=== PATIENT | female | born 1955 | race Caucasian/White ===

== ENCOUNTER → 2016-04-17 | Outpatient (CLI) | payer MEDICARE, MEDICAID | LOC: RAD 13:30 | PROVIDERS: ATTEND Internal Medicine Critical Care Medicine | DX: J44.9 Chronic obstructive pulmonary disease, unspecified (principal); R06.00 Dyspnea, unspecified; R91.1 Solitary pulmonary nodule; Z80.1 Family history of malignant neoplasm of trachea, bronchus and lung; J45.40 Moderate persistent asthma, uncomplicated; G47.34 Idiopathic sleep related nonobstructive alveolar hypoventilation; R06.83 Snoring; R53.83 Other fatigue; G47.9 Sleep disorder, unspecified; J40 Bronchitis, not specified as acute or chronic; R91.8 Other nonspecific abnormal finding of lung field | CPT/HCPCS: 71250 ==

== ENCOUNTER 2016-04-27 09:33 | Day surgery (SDC) | payer MEDICARE, MEDICAID ==
[~2016-04-27 09:33] MED LIST: PROPOFOL INJ 200 MG/20 ML VIAL IV ONE
[2016-04-27] MEDS ORDERED: ALBUTEROL SULFATE 0.083% NEB 2.5 MG/3 ML AMPUL NEB ONE (10:03)
[2016-04-27 11:22] VITALS: BP 133/65
--- NOTE | 2016-04-27 13:55 | Operative Report ---
Operative Report DATE OF SURGERY: 04/27/16 Operative Report: The risks, benefits and alternatives of the procedure including risks of bleeding, perforation requiring surgery I expended to the patient detail and informed consent is obtained. Patient is placed in a left lateral decubital position about back to the endoscopy suite. Timeout is called. Propofol medications administered. A rectal examination was done which did not reveal any masses, tears or fissures. An Olympus videoscope was inserted into the patient's rectum. The scope was then carefully advanced all the way to the cecum. The cecum was identified by the usual anatomical landmarks including the ileocecal valve as well as the appendiceal office. Photodocumentation was obtained. Prep is good. The scope was then sequentially pulled back creative rest segments of the colon including the ascending colon, hepatic flexure, transverse colon, splenic flexure, descending colon and finally into the rectosigmoid portions of the colon. Flexure maneuver is performed. The risks benefits and alternatives of the procedure explained to the patient in detail and informed consent is obtained that GIF Olympus video scope was inserted into the patient's mouth and hypopharynx the esophagus is identified intubated and insufflated the scope was then advanced through the esophagus stomach and duodenum retroflexion maneuver is done the esophagus stomach and first and second portions of the duodenum examined PREOPERATIVE DIAGNOSIS: Epigastric pain. Rectal bleeding POSTOPERATIVE DIAGNOSIS: 1 Gonzalez's esophagus status post biopsy. 2 hiatal hernia. Gastritis status post biopsy rule out Helicobacter pylori. Diverticulosis. Internal hemorrhoids. Colon polyp which is removed via biopsy forceps OPERATION: Colonoscopy with biopsy. EGD with biopsy SURGEON: RANCHO MULLEN ANESTHESIA: LMAC TISSUE REMOVED OR ALTERED: Esophageal specimens is noted. Gastric specimens is noted. Colon specimens is noted COMPLICATIONS: None. ESTIMATED BLOOD LOSS: none. INTRAOPERATIVE FINDINGS: As described above. PROCEDURE: Patient tolerated the procedure well. No immediate postprocedure complications are noted. Patient is discharged in good condition. Discharge date 04/27/2016. Discharge diet: Regular. Discharge activity: Regular. Patient does have a 2-3 week follow-up to discuss findings. She will need an EGD with ablative therapy. She is instructed to call the office or proceed to the emergency room needed. We'll await on biopsies. Surveillance colonoscopy in 10 years unless there are other problems. She'll be contacted ahead of time if there are any significant findings on the pathology report
== END 2016-04-27 11:17 | disposition home or self-care (01) ==
LOC: END 09:33
PROVIDERS: ATTEND Internal Medicine Gastroenterology
PROC: 0DBF8ZX Excision of Right Large Intestine, Via Natural or Artificial Opening Endoscopic, Diagnostic (ICD-10-PCS; 2016-04-27)
PROC: 0DBP8ZX Excision of Rectum, Via Natural or Artificial Opening Endoscopic, Diagnostic (ICD-10-PCS; 2016-04-27)
PROC: 0DB68ZX Excision of Stomach, Via Natural or Artificial Opening Endoscopic, Diagnostic (ICD-10-PCS; principal; 2016-04-27 12:00)
PROC: 0DB58ZX Excision of Esophagus, Via Natural or Artificial Opening Endoscopic, Diagnostic (ICD-10-PCS; 2016-04-27 12:00)
DX: K29.50 Unspecified chronic gastritis without bleeding (principal); K44.9 Diaphragmatic hernia without obstruction or gangrene; K64.8 Other hemorrhoids; K62.5 Hemorrhage of anus and rectum; K57.30 Diverticulosis of large intestine without perforation or abscess without bleeding; K62.1 Rectal polyp; J44.9 Chronic obstructive pulmonary disease, unspecified; I10 Essential (primary) hypertension; E78.5 Hyperlipidemia, unspecified; M85.80 Other specified disorders of bone density and structure, unspecified site; M19.90 Unspecified osteoarthritis, unspecified site; F17.200 Nicotine dependence, unspecified, uncomplicated; Z88.5 Allergy status to narcotic agent
CPT/HCPCS: 43239; 45380; 88305 ×2; J2704; A9270; 740

== ENCOUNTER 2016-05-13 07:16 | Day surgery (SDC) | payer MEDICARE, MEDICAID ==
--- NOTE | 2016-05-08 12:37 | EKG REPORT ---
SEVERITY:- NORMAL ECG - SINUS RHYTHM : Confirmed by: Aden Ocampo 08-May-2016 12:36:01
[2016-05-08 12:38] LABS: ABSOLUTE BASOPHILS # (AUTO) 0.1 10^3/uL (0.0-0.2); ABSOLUTE EOSINOPHILS # (AUTO) 0.2 10^3/uL (0.0-0.6); ABSOLUTE LYMPHOCYTES (AUTO) 2.5 10^3/uL (0.5-4.7); ABSOLUTE MONOCYTES (AUTO) 0.4 10^3/uL (0.1-1.4); ABSOLUTE NEUT (AUTO) 2.1 10^3/uL (1.7-8.2); BASOPHILS % (AUTO) 1.1 % (0-2); EOSINOPHILS % (AUTO) 3.7 % (0-6); HEMOGLOBIN 11.8 g/dL (12.0-15.5); HGB HCT DIFFERENCE 0.4; LYMPHOCYTES % (AUTO) 47.2 % (13-45); MEAN CORPUSCULAR HEMOGLOBIN 32.7 pg (27.0-33.4); MEAN CORPUSCULAR HGB CONC 33.8 g/dL (32.0-36.0); MEAN CORPUSCULAR VOLUME 97 fl (80-97); MONOCYTES % (AUTO) 8.3 % (3-13); RED BLOOD COUNT 3.62 10^6/uL (3.72-5.28); SEGMENTED NEUTROPHILS % (AUTO) 39.7 % (42-78); WHITE BLOOD COUNT 5.3 10^3/uL (4.0-10.5)
[2016-05-08 13:20] LABS: ANION GAP 13 (5-19); BLOOD UREA NITROGEN 9 mg/dL (7-20); CALCIUM 9.4 mg/dL (8.4-10.2); CARBON DIOXIDE 29 mmol/L (22-30); CHLORIDE 99 mmol/L (98-107); CREATININE RESULT 0.77 mg/dL (0.52-1.25); GLUCOSE 91 mg/dL (75-110); POTASSIUM 4.1 mmol/L (3.6-5.0)
[~2016-05-13 07:16] MED LIST changes: +ACETAMINOPHEN 325 MG TABLET PO PRN; +DEXTROSE 5%-1/2 NORMAL SALINE 1,000 ML IV PRN; +LACTATED RINGERS 1000 ML IV PRN; +LIDOCAINE 0.5% INJ-PF (5 MG/ML) 50 ML SDV SUBCUT PRN; +PROMETHAZINE HCL INJ 25 MG/1 ML VIAL INJ PRN; -PROPOFOL INJ 200 MG/20 ML VIAL IV ONE
[2016-05-13] MEDS ORDERED: MIDAZOLAM 2 MG/2 ML INJ ONE (09:21)
[2016-05-13] MEDS ORDERED: PROPOFOL INJ 200 MG/20 ML VIAL IV ONE (09:21)
[2016-05-13] MEDS ORDERED: KETAMINE HCL INJ 500 MG/10 ML VIAL ONE (09:22)
[2016-05-13] MEDS ORDERED: PROMETHAZINE HCL INJ 25 MG/1 ML VIAL IV PRN ×2 (10:01)
[2016-05-13] MEDS ORDERED: MEPERIDINE HCL/PF INJ 25 MG/1 ML DISP.SYRIN IV PRN (10:01)
[2016-05-13] MEDS ORDERED: DIPHENHYDRAMINE HCL 50 MG/ML VIAL IV PRN (10:01)
--- NOTE | 2016-05-13 10:21 | Operative Report ---
Operative Report DATE OF SURGERY: 05/13/16 Operative Report: The risks benefits and alternatives of the procedure explained to the patient in detail and informed consent is obtained that GIF Olympus video scope was inserted into the patient's mouth and hypopharynx the esophagus is identified intubated and insufflated the scope was then advanced through the esophagus stomach and duodenum retroflexion maneuver is done the esophagus stomach and first and second portions of the duodenum examined PREOPERATIVE DIAGNOSIS: Gonzalez's esophagus POSTOPERATIVE DIAGNOSIS: Gonzalez's esophagus, low-grade dysplasia status post ablation OPERATION: EGD with ablation SURGEON: RANCHO MULLEN ANESTHESIA: LMAC TISSUE REMOVED OR ALTERED: None. COMPLICATIONS: None. ESTIMATED BLOOD LOSS: none. INTRAOPERATIVE FINDINGS: Gonzalez's esophagus status post ablation, hiatal hernia PROCEDURE: Patient tolerated procedure well. No immediate postprocedure complications are noted. Patient is discharged in good condition. Discharge date 05/13/2016. Discharge activity: Regular. Discharge diet: Regular. No cold fluids for the next 24-48 hours. 2-3 week follow-up to discuss findings. 8 weeks surveillance Patient is instructed to call the office or proceed to the emergency room if any further problems or questions
[2016-05-13] MEDS ORDERED: ONDANSETRON HCL INJ/PF 4 MG/2 ML SDV ONE (10:34)
[2016-05-13] MEDS ORDERED: DEXTROSE 5%-1/2 NORMAL SALINE 1,000 ML IV PRN (11:28)
[2016-05-13] MEDS ORDERED: LIDOCAINE 0.5% INJ-PF (5 MG/ML) 50 ML SDV SUBCUT PRN (11:29)
[2016-05-13] MEDS ORDERED: SIMETHICONE 80 MG TAB.CHEW PO PRN (11:44)
[2016-05-13 13:53] VITALS: BP 139/82
[2016-05-13] MEDS ORDERED: LIDOCAINE 2% INJ-PF (20 MG/ML) 10 ML AMPUL ONE (14:34)
== END 2016-05-13 12:30 | disposition home or self-care (01) ==
LOC: OROUT 07:16
PROVIDERS: ATTEND Internal Medicine Gastroenterology
PROC: 0D558ZZ Destruction of Esophagus, Via Natural or Artificial Opening Endoscopic (ICD-10-PCS; principal; 2016-05-13 09:15)
DX: K22.70 Barrett's esophagus without dysplasia (principal); J45.909 Unspecified asthma, uncomplicated; J44.9 Chronic obstructive pulmonary disease, unspecified; F17.210 Nicotine dependence, cigarettes, uncomplicated; I10 Essential (primary) hypertension; E78.5 Hyperlipidemia, unspecified; Z88.5 Allergy status to narcotic agent; Z79.51 Long term (current) use of inhaled steroids
CPT/HCPCS: 43270; 93005; 36415; 85025; 80048; 71020; 93010; J2250; J3490 ×2; A9270; J2405; J2704; 740

== ENCOUNTER 2016-07-06 08:33 | Day surgery (SDC) | payer MEDICARE, MEDICAID ==
[~2016-07-06 08:33] MED LIST changes: -ACETAMINOPHEN 325 MG TABLET PO PRN; -LACTATED RINGERS 1000 ML IV PRN; -LIDOCAINE 0.5% INJ-PF (5 MG/ML) 50 ML SDV SUBCUT PRN; -PROMETHAZINE HCL INJ 25 MG/1 ML VIAL INJ PRN; +PROPOFOL INJ 200 MG/20 ML VIAL IV ONE
[2016-07-06] MEDS ORDERED: PROPOFOL INJ 200 MG/20 ML VIAL IV ONE (08:35)
[2016-07-06 09:53] VITALS: BP 136/86
--- NOTE | 2016-07-06 13:58 | Operative Report ---
Operative Report DATE OF SURGERY: 07/06/16 Operative Report: The risks benefits and alternatives of the procedure explained to the patient in detail and informed consent is obtained that GIF Olympus video scope was inserted into the patient's mouth and hypopharynx the esophagus is identified intubated and insufflated the scope was then advanced through the esophagus stomach and duodenum retroflexion maneuver is done the esophagus stomach and first and second portions of the duodenum examined PREOPERATIVE DIAGNOSIS: Long segment Gonzalez's esophagus POSTOPERATIVE DIAGNOSIS: Same, status post ablation OPERATION: EGD with ablation SURGEON: RANCHO MULLEN ANESTHESIA: Moderate Sedation TISSUE REMOVED OR ALTERED: None. COMPLICATIONS: None. ESTIMATED BLOOD LOSS: none. INTRAOPERATIVE FINDINGS: Gonzalez's status post ablation. Normal gastric antrum. First and second portions of the duodenum normal. PROCEDURE: Patient tolerated procedure well. No immediate postprocedure complications are noted. Patient is discharged in good condition. Discharge date 07/06/2016. Discharge diet: Regular. Discharge activity: Regular. No immediate postprocedure complications are noted. 6-8 weeks follow up for surveillance.
== END 2016-07-06 10:00 | disposition home or self-care (01) ==
LOC: END 08:33
PROVIDERS: ATTEND Internal Medicine Gastroenterology
PROC: 0D558ZZ Destruction of Esophagus, Via Natural or Artificial Opening Endoscopic (ICD-10-PCS; principal; 2016-07-06 08:30)
DX: K22.719 Barrett's esophagus with dysplasia, unspecified (principal); K29.51 Unspecified chronic gastritis with bleeding; J44.9 Chronic obstructive pulmonary disease, unspecified; M19.90 Unspecified osteoarthritis, unspecified site; E78.5 Hyperlipidemia, unspecified; I10 Essential (primary) hypertension; M85.88 Other specified disorders of bone density and structure, other site; F17.210 Nicotine dependence, cigarettes, uncomplicated; Z79.899 Other long term (current) drug therapy; Z79.51 Long term (current) use of inhaled steroids
CPT/HCPCS: 43270; J2704; 740

== ENCOUNTER → 2016-08-07 | Outpatient (CLI) | payer MEDICARE, MEDICAID | LOC: RAD 08:44 | PROVIDERS: ATTEND Internal Medicine Critical Care Medicine | DX: R91.1 Solitary pulmonary nodule (principal) | CPT/HCPCS: 71250 ==

== ENCOUNTER 2016-08-24 07:16 | Day surgery (SDC) | payer MEDICARE, MEDICAID ==
[2016-08-24] MEDS ORDERED: PROPOFOL INJ 200 MG/20 ML VIAL IV ONE (07:26)
[2016-08-24 08:53] VITALS: BP 151/74
--- NOTE | 2016-08-24 13:15 | Operative Report ---
Operative Report DATE OF SURGERY: 08/24/16 Operative Report: The risks, benefits and alternatives of the procedure are explained to the patient in detail and informed consent is obtained the patient is taken to the EU suite and time out is called. Propofol sedation is administered. A GIF videoscope is inserted into the patient's mouth and hypopharynx the esophagus is identified and insufflated, the scope is then gradually advanced downwards thru the esophagus Gonzalez's tissue is identified the stomach and the duodenum are inspected, the scope is brought back out into the stomach cavity and retroflexed the esophagus, stomach and small intestine is examined PREOPERATIVE DIAGNOSIS: Gonzalez's esophagus POSTOPERATIVE DIAGNOSIS: Gonzalez's esphagus , long segment but improved since has had prior ablative procedure OPERATION: EGD with ablation SURGEON: RANCHO MULLEN ANESTHESIA: LMAC TISSUE REMOVED OR ALTERED: none COMPLICATIONS: none ESTIMATED BLOOD LOSS: none INTRAOPERATIVE FINDINGS: as described above PROCEDURE: The patient tolerated the procedure well no post procedure complications are noted patient is discharged in good condition discharge date: 08/24/16 discharge diet: regular discharge activity : regular repeat ablation in 6 weeks follow up as needed patient to call the office or proceed to the ER if there are any other questions or issues.
== END 2016-08-24 08:50 | disposition home or self-care (01) ==
LOC: END 07:16
PROVIDERS: ATTEND Internal Medicine Gastroenterology
PROC: 0D558ZZ Destruction of Esophagus, Via Natural or Artificial Opening Endoscopic (ICD-10-PCS; principal; 2016-08-24 08:00)
DX: K22.70 Barrett's esophagus without dysplasia (principal); J44.9 Chronic obstructive pulmonary disease, unspecified; I10 Essential (primary) hypertension; F17.210 Nicotine dependence, cigarettes, uncomplicated; Z79.899 Other long term (current) drug therapy; Z88.5 Allergy status to narcotic agent; Z87.11 Personal history of peptic ulcer disease
CPT/HCPCS: 43270; J2704; 810

== ENCOUNTER 2016-09-30 07:51 | Day surgery (SDC) | payer MEDICARE, MEDICAID ==
[~2016-09-30 07:51] MED LIST changes: -DEXTROSE 5%-1/2 NORMAL SALINE 1,000 ML IV PRN; +LACTATED RINGERS 1000 ML IV PRN; +LIDOCAINE 0.5% INJ-PF (5 MG/ML) 50 ML SDV SUBCUT PRN; -PROPOFOL INJ 200 MG/20 ML VIAL IV ONE
[2016-09-30] MEDS ORDERED: ALBUTEROL SULFATE 0.083% NEB 2.5 MG/3 ML AMPUL NEB ONE (08:38)
[2016-09-30] MEDS ORDERED: PROPOFOL INJ 200 MG/20 ML VIAL IV ONE (10:24)
[2016-09-30] MEDS ORDERED: DIPHENHYDRAMINE HCL 50 MG/ML VIAL IV PRN (11:11)
[2016-09-30] MEDS ORDERED: FENTANYL CITRATE INJ/PF 100 MCG/2 ML AMPUL IV PRN ×2 (11:11)
[2016-09-30] MEDS ORDERED: PROMETHAZINE HCL INJ 25 MG/1 ML VIAL IV PRN ×2 (11:11)
--- NOTE | 2016-09-30 11:18 | Operative Report ---
Operative Report DATE OF SURGERY: 09/30/16 Operative Report: The risks benefits and alternatives of the procedure explained to the patient in detail and informed consent is obtained. A GIF Olympus video scope was inserted into the patient's mouth and hypopharynx, the esophagus is identified intubated and insufflated,the scope was then advanced through the esophagus stomach and duodenum, retroflexion maneuver is done, the esophagus stomach and first and second portions of the duodenum examined PREOPERATIVE DIAGNOSIS: Gonzalez's esophagus long segment POSTOPERATIVE DIAGNOSIS: Initial upper endoscopy is performed in order to obtain an accurate length of the Gonzalez's esophagus. It is noted that the Gonzalez's stopped at 25 cm and proceeds to about 36 cm patient does have a hiatal hernia. A guidewire was placed. The scope was gradually removed via the exchange method. The balloon catheter was then placed over the wire and positioned at 24 cm. Because of this before centimeter ablation distance, the first ablation was started at 24 cm. Following placement of the balloon catheter repeat upper endoscopy was done to visualize the area. After the first ablation, the balloon catheter was advanced 4 cm. Ablation was then reapplied. Following this the balloon catheter was then advanced another 4 cm and a third ablation performed. All the devices have been removed. Repeat upper endoscopy demonstrates adequate ablation of the lesion from 25-36 cm. Procedure was then completed. OPERATION: EGD with ablation SURGEON: RANCHO MULLEN ANESTHESIA: LMAC TISSUE REMOVED OR ALTERED: None. COMPLICATIONS: None. ESTIMATED BLOOD LOSS: None. INTRAOPERATIVE FINDINGS: As described above. PROCEDURE: Patient tolerated the procedure well. No immediate postprocedure complications are noted. Patient discharged in good condition. Discharge date 09/30/2016. Discharge diet regular but no cold liquids for 48 hours. Discharge activity regular 2-3 week follow-up to discuss findings Surveillance EGD with possible re-ablation for localized islands in about 5-6 months Patient is instructed to call the office or proceed to the emergency room should there be any further problems or questions
[2016-09-30] MEDS ORDERED: ONDANSETRON HCL INJ/PF 4 MG/2 ML SDV ONE ×2 (11:52→13:06)
[2016-09-30] MEDS ORDERED: DEXAMETHASONE SOD PHOSPHATE INJ 4 MG/1 ML VIAL ONE (13:06)
[2016-09-30 13:50] VITALS: BP 150/79
== END 2016-09-30 13:00 | disposition home or self-care (01) ==
LOC: OROUT 07:51
PROVIDERS: ATTEND Internal Medicine Gastroenterology
PROC: 0D558ZZ Destruction of Esophagus, Via Natural or Artificial Opening Endoscopic (ICD-10-PCS; principal; 2016-09-30 10:00)
DX: K22.719 Barrett's esophagus with dysplasia, unspecified (principal); I10 Essential (primary) hypertension; J44.9 Chronic obstructive pulmonary disease, unspecified; F17.210 Nicotine dependence, cigarettes, uncomplicated; K21.9 Gastro-esophageal reflux disease without esophagitis; E78.5 Hyperlipidemia, unspecified; M19.90 Unspecified osteoarthritis, unspecified site; Z79.51 Long term (current) use of inhaled steroids; Z88.5 Allergy status to narcotic agent; Z79.899 Other long term (current) drug therapy
CPT/HCPCS: 43270; C1769; J1100; J2405; J2704; A9270; 740

== ENCOUNTER → 2016-12-01 | Outpatient (CLI) | payer MEDICARE, MEDICAID ==
--- NOTE | 2016-12-04 12:56 | WOMENS IMAGING REPORT ---
EXAM DESCRIPTION: BILAT SCREENING MAMMO W/CAD COMPLETED DATE/TIME: 12/04/2016 12:27 pm REASON FOR STUDY: ROUTINE SCREENING; Z12.31 Z12.31 ENCNTR SCREEN MAMMOGRAM FOR MALIGNANT NEOPLASM O F TATIANA COMPARISON: Annual priors dating back to August 2010. TECHNIQUE: Standard craniocaudal and mediolateral oblique views of each breast recorded using digita l acquisition. LIMITATIONS: None. FINDINGS: Findings present which are benign by mammographic criteria. No suspicious masses, calcifi cations or architectural distortion. Pertinent benign findings: Benign calcifications. Read with the assistance of CAD. .[facility] - R2 Cenova Version 1.3 .[facility] - R2 Cenova Version 1.3 .[facility] - R2 Cenova Version 2.4 .[facility] [place] Cenova Version 2.4 .[facility] - R2 [employer] Version 9.2 Benign mammographic findings may include one or more of the following: Smooth masses, popcorn/rim/co arse calcifications, asymmetries, post-procedure changes, and lesions with long-standing stability. IMPRESSION: BENIGN MAMMOGRAPHIC FINDINGS. BIRADS 2 BREAST DENSITY: c. The breasts are heterogeneously dense, which may obscure small masses. BIRAD: 2 BENIGN FINDING(S) RECOMMENDATION: ROUTINE SCREENING COMMENT: The patient has been notified of the results by letter per SA requirements. Additional no tification policies are in place for contacting patient with suspicious or incomplete findings. Quality ID #[id number]: The [employer] recommends an annual screening mammogram for women aged 40 years or over. This facility utilizes a reminder system to ensure that all patients receive reminder letters, and/or direct phone calls for appointments. This includes reminders for routine scr eening mammograms, diagnostic mammograms, or other Breast Imaging Interventions when appropriate. Th is patient will be placed in the appropriate reminder system. The [employer] (ACR) has developed recommendations for screening MRI of the breast s in certain patient populations, to be used in conjunction with mammography. Breast MRI surveillanc e may be appropriate for women with more than 20% lifetime risk of developing breast cancer as deter mined by genetic testing, significant family history of the disease, or history of mantle radiation f or Hodgkins Disease. ACR Practice Guidelines 2008. TECHNICAL DOCUMENTATION: FINDING NUMBER: (1) ASSESSMENT: (1) JOB ID: [id number] [employer]- All Rights Reserved
== END ==
LOC: WI 09:41 → MERGE 09:41
PROVIDERS: ATTEND Family Medicine
DX: Z12.31 Encounter for screening mammogram for malignant neoplasm of breast (principal)
CPT/HCPCS: 77067; G0202

== ENCOUNTER → 2017-03-09 | Outpatient (CLI) | payer MEDICARE, MEDICAID ==
--- NOTE | 2017-03-09 12:49 | RADIOLOGY REPORT (SQ) ---
EXAM DESCRIPTION: CHEST PA/LAT COMPLETED DATE/TIME: 03/09/2017 12:39 pm REASON FOR STUDY: R05 COUGH PRODUCTIVE OF PURULENT SPUTUM COMPARISON: 05/06/2015 EXAM PARAMETERS: NUMBER OF VIEWS: two views TECHNIQUE: Digital Frontal and Lateral radiographic views of the chest acquired. RADIATION DOSE: NA LIMITATIONS: none FINDINGS: LUNGS AND PLEURA: The lungs are hyperexpanded. There is no infiltrate or effusion. There is no mass. MEDIASTINUM AND HILAR STRUCTURES: No masses or contour abnormalities. HEART AND VASCULAR STRUCTURES: Heart normal size. No evidence for failure. BONES: No acute findings. HARDWARE: None in the chest. OTHER: No other significant finding. IMPRESSION: Chronic lung changes with no acute cardiopulmonary disease. TECHNICAL DOCUMENTATION: JOB ID: [id number] [employer]- All Rights Reserved
== END ==
LOC: RAD 12:26
PROVIDERS: ATTEND Nurse Practitioner Family
DX: R05 Cough (principal)
CPT/HCPCS: 71020

== ENCOUNTER → 2017-07-06 | Outpatient (CLI) | payer MEDICARE, MEDICAID ==
--- NOTE | 2017-07-06 13:38 | RADIOLOGY REPORT (SQ) ---
EXAM DESCRIPTION: MRI LUMBAR SPINE WITHOUT COMPLETED DATE/TIME: 07/06/2017 11:45 am REASON FOR STUDY: LOW BACK PAIN (M54.5) M54.5 LOW BACK PAIN COMPARISON: MRI lumbar spine 07/10/2008 CT chest 08/07/2016 TECHNIQUE: Sagittal and Axial imaging includes T1, T2, STIR and gradient echo sequences. Coronal T2/ HASTE imaging. LIMITATIONS: None. FINDINGS: VISUALIZED UPPER ABDOMEN: Limited evaluation. No acute or suspicious findings suggested. SEGMENTATION: No transitional anatomy. The lowest well-developed disc space is labeled L5-S1. ALIGNMENT: Anatomic. VERTEBRAE: Chronic T12 50% compression deformity. Minimal retropulsion of the T11-12 posterior disc margin and posterosuperior corner of T12 without definite cord flattening or abnormal intrinsic signa l. BONE MARROW: Normal. No marrow replacement or reactive changes. DISC SIGNAL: Diffuse decreased T2 weighted intervertebral disc signal throughout the visualized spine POSTERIOR ELEMENTS: Generally intact. No pars defect evident. HARDWARE: None in the spine. CORD AND CONUS: Normal in size and signal intensity. Conus at the L1-2 level. SOFT TISSUES: No aortic aneurysm seen. No bulky retroperitoneal adenopathy or mass. No paraspinal mas s or fluid. T11-12: At the upper edge of the field of view. Borderline central canal narrowing from minimal ret ropulsion of the posterosuperior corner of T12 from chronic 50% compression deformity. Mild bilatera l foraminal narrowing without exiting nerve root impingement. T12-L1: Mild diffuse posterior disc bulging and mild bilateral facet arthropathy. No central or for aminal stenosis. L1-L2: Mild posterior disc bulge, mild bilateral facet and ligament hypertrophy. Borderline central canal narrowing. No significant foraminal narrowing. L2-L3: Minimal posterior disc bulging, mild bilateral facet and ligament hypertrophy. Mild inferior right foraminal narrowing. No central stenosis or left foraminal narrowing. L3-L4: Mild diffuse posterior disc bulging, moderate bilateral facet and ligament hypertrophy. No ce ntral or foraminal encroachment. L4-L5: Broad diffuse posterior disc bulging, moderate bilateral facet and ligament hypertrophy causes mild central canal stenosis with flattening of the thecal sac into a triangular shape best shown on axial T2 image 38. There is mild bilateral inferior foraminal narrowing without exiting L4 nerve chino t impingement L5-S1: Broad diffuse posterior disc bulge and bulky bilateral facet and ligament hypertrophy. Modera te central canal stenosis best shown on axial T2 image 35. Mild bilateral foraminal narrowing withou t exiting L5 nerve root impingement. SACRUM: Visualized upper sacrum intact. OTHER: No other significant findings. IMPRESSION: Multilevel degenerative changes as above. Significant central canal stenosis at L5-S1. Multilevel facet arthropathy. Chronic T12 compression deformity. TECHNICAL DOCUMENTATION: JOB ID: [id number] [employer]- All Rights Reserved Reading location - IP/workstation name: PENDING SALE TO [facility]
== END ==
LOC: RAD 11:05
PROVIDERS: ATTEND Family Medicine
DX: M54.5 Low back pain (principal); M48.07 Spinal stenosis, lumbosacral region
CPT/HCPCS: 72148

== ENCOUNTER 2017-11-11 00:11 | Inpatient (IN) | payer MEDICARE, MEDICAID ==
--- NOTE | 2017-11-11 01:33 | ER Document Report ---
ED Neck/Back Problem - General Chief Complaint: Back Pain Stated Complaint: BACK PAIN Time Seen by Provider: 11/11/17 01:33 Mode of Arrival: Ambulatory Information source: Patient TRAVEL OUTSIDE OF THE [place] IN LAST 30 DAYS: No - HPI Patient complains to provider of: Pain, Upper back, Lower back Onset: Just prior to arrival Where: Home Onset: Sudden Timing: Constant Quality of pain: Sharp Severity: Severe Pain Level: 5 Recent injury: No Associated symptoms: Lower back pain, Upper back pain Exacerbated by: Nothing Relieved by: Nothing Similar symptoms previously: Yes Recently seen / treated by doctor: No - Related Data Allergies/Adverse Reactions: codeine [Codeine] Allergy (Mild, Verified 08/24/16 07:12) rash propoxyphene napsylate [From Darvocet-N 100] Allergy (Mild, Verified 08/24/16 07 :12) rash Past Medical History - Social History Smoking Status: Current Every Day Smoker Family History: Reviewed & Not Pertinent Patient has suicidal ideation: No Patient has homicidal ideation: No - Past Medical History Cardiac Medical History: Reports: Hx Hypercholesterolemia, Hx Hypertension Denies: Hx Coronary Artery Disease, Hx Heart Attack Pulmonary Medical History: Reports: Hx Asthma, Hx Bronchitis, Hx COPD, Hx Pneumonia Neurological Medical History: Denies: Hx Cerebrovascular Accident, Hx Seizures Renal/ Medical History: Denies: Hx Peritoneal Dialysis GI Medical History: Reports: Hx Gastroesophageal Reflux Disease, Hx Ulcer - ESOPHAGUS/RESOLVED. Denies: Hx Hepatitis, Hx Hiatal Hernia Musculoskeletal Medical History: Reports Hx Arthritis - BACK Infectious Medical History: Denies: Hx Hepatitis Past Surgical History: Reports: Hx Tubal Ligation. Denies: Hx Hysterectomy, Hx Mastectomy, Hx Open Heart Surgery, Hx Pacemaker - Immunizations Hx Diphtheria, Pertussis, Tetanus Vaccination: - UNKNOWN Hx Pneumococcal Vaccination: 12/20/16 Review of Systems - Review of Systems Constitutional: denies: Chills, Fever EENT: denies: Eye pain, Ear discharge Cardiovascular: No symptoms reported Respiratory: denies: Cough, Short of breath Gastrointestinal: No symptoms reported Genitourinary: No symptoms reported Female Genitourinary: No symptoms reported Musculoskeletal: Back pain Skin: No symptoms reported Hematologic/Lymphatic: No symptoms reported Neurological/Psychological: No symptoms reported -: Yes All other systems reviewed and negative Physical Exam - Vital signs Vitals: Temp Pulse Resp BP Pulse Ox 98.7 F 108 H 20 148/75 H 96 11/11/17 00:21 11/11/17 00:21 11/11/17 00:21 11/11/17 00:21 11/11/17 00:21 - General General appearance: Appears well, Alert In distress: Severe - HEENT Head: Normocephalic, Atraumatic Eyes: Normal Pupils: PERRL - Respiratory Respiratory status: No respiratory distress Chest status: Nontender Breath sounds: Normal Chest palpation: Normal - Cardiovascular Rhythm: Regular Heart sounds: Normal auscultation Murmur: No - Abdominal Inspection: Normal Distension: No distension Bowel sounds: Normal Tenderness: Nontender Organomegaly: No organomegaly - Back Back: Normal, Tender, Vertebra tenderness. No: Deformity/step-off - Extremities General upper extremity: Normal inspection, Nontender, Normal color, Normal ROM , Normal temperature General lower extremity: Normal inspection, Nontender, Normal color, Normal ROM , Normal temperature, Normal weight bearing. No: Yarelis's sign - Neurological Neuro grossly intact: Yes Cognition: Normal Orientation: AAOx4 Aneta Coma Scale Eye Opening: Spontaneous [place] Coma Scale Verbal: Oriented [place] Coma Scale Motor: Obeys Commands [place] Coma Scale Total: 15 Speech: Normal Motor strength normal: LUE, RUE, LLE, RLE Sensory: Normal - Psychological Associated symptoms: Normal affect, Normal mood - Skin Skin Temperature: Warm Skin Moisture: Dry Skin Color: Normal Course - Re-evaluation Re-evalutation: 11/11/17 03:57 Patient's care were discussed with the hospitalist on-call Dr. Jimenez. He will admit patient to the hospital for further evaluation and management. We will also check the results of the CTA of the chest abdomen and pelvis. - Vital Signs Vital signs: Temp Pulse Resp BP Pulse Ox 98.6 F 98 12 162/80 H 98 11/11/17 12:00 11/11/17 12:00 11/11/17 12:00 11/11/17 12:00 11/11/17 12:00 - Laboratory Result Diagrams: 11/11/17 02:00 11/11/17 11:53 Laboratory results interpreted by me: 11/11/17 11/11/17 11/11/17 02:00 02:00 02:00 WBC 17.3 H MCH 33.8 H MCHC 36.4 H Seg Neutrophils % 81.2 H Lymphocytes % 11.6 L Absolute Neutrophils 14.1 H Sodium 117.3 L* Potassium 3.1 L Chloride 68 L Carbon Dioxide 33 H BUN 23 H Total Bilirubin 1.6 H Direct Bilirubin 0.6 H AST 87 H ALT 56 H Creatine Kinase 750 H NT-Pro-B Natriuret Pep 1540 H Total Protein 8.4 H Urine Protein Urine Urobilinogen Ur Leukocyte Esterase 11/11/17 02:35 WBC MCH MCHC Seg Neutrophils % Lymphocytes % Absolute Neutrophils Sodium Potassium Chloride Carbon Dioxide BUN Total Bilirubin Direct Bilirubin AST ALT Creatine Kinase NT-Pro-B Natriuret Pep Total Protein Urine Protein 100 H Urine Urobilinogen 2.0 H Ur Leukocyte Esterase MODERATE H - Diagnostic Test Radiology reviewed: Image reviewed, Reports reviewed - EKG Interpretation by Me EKG shows normal: Sinus rhythm Rate: Tachycardia - 105 When compared to previous EKG there are: Changes noted Additional EKG results interpreted by me: 11/11/17 03:[address] and T wave changes. No STEMI. - Transfer of Care Notes: 11/11/17 03:39 Chronic back pain. Hypertension. Hyponatremia. Discharge - Discharge Clinical Impression: Hyponatremia, Compression fracture of body of thoracic vertebra UTI (urinary tract infection) Qualifiers: Urinary tract infection type: acute cystitis Hematuria presence: without hematuria Qualified Code(s): N30.00 - Acute cystitis without hematuria Back pain Qualifiers: Back pain location: low back pain Chronicity: chronic Back pain laterality: unspecified Sciatica presence: unspecified whether sciatica present Qualified Code(s): M54.5 - Low back pain Hypertension Qualifiers: Hypertension type: unspecified Qualified Code(s): I10 - Essential (primary) hypertension Vertebral fracture, closed Qualifiers: Encounter type: initial encounter Fracture of vertebra location: thoracic Thoracic vertebra fracture level: T7 Fracture morphology: unspecified fracture morphology Qualified Code(s): S22.069A - Unspecified fracture of T7-T8 vertebra , initial encounter for closed fracture Condition: Stable Disposition: ADMITTED INPATIENT Admitting Provider: Dr Jimenez Unit Admitted: [facility]
[2017-11-11] MEDS ORDERED: HYDROMORPHONE HCL INJ/PF 2 MG/ML AMPULE IV ONE ×3 (01:45→04:55)
[2017-11-11] MEDS ORDERED: ONDANSETRON HCL INJ/PF 4 MG/2 ML SDV IV ONE (01:45)
[2017-11-11 02:18] LABS: ABSOLUTE BASOPHILS # (AUTO) 0.1 10^3/uL (0.0-0.2); ABSOLUTE MONOCYTES (AUTO) 1.2 10^3/uL (0.1-1.4); ABSOLUTE NEUT (AUTO) 14.1 10^3/uL (1.7-8.2); BASOPHILS % (AUTO) 0.3 % (0-2); EOSINOPHILS % (AUTO) 0.2 % (0-6); HEMATOCRIT 37.8 % (36.0-47.0); HEMOGLOBIN 13.8 g/dL (12.0-15.5); LYMPHOCYTES % (AUTO) 11.6 % (13-45); MEAN CORPUSCULAR HEMOGLOBIN 33.8 pg (27.0-33.4); MEAN CORPUSCULAR HGB CONC 36.4 g/dL (32.0-36.0); MEAN CORPUSCULAR VOLUME 93 fl (80-97); MONOCYTES % (AUTO) 6.7 % (3-13); PLATELET COUNT 339 10^3/uL (150-450); RED BLOOD COUNT 4.07 10^6/uL (3.72-5.28); RED CELL DISTRIBUTION WIDTH 13.7 % (11.5-14.0); SEGMENTED NEUTROPHILS % (AUTO) 81.2 % (42-78); TOTAL CELLS COUNTED % (AUTO) 100 %; WHITE BLOOD COUNT 17.3 10^3/uL (4.0-10.5)
[2017-11-11 02:20] LABS: INTERNATIONAL RATION (INR) 0.95; PROTHROMBIN TIME 13.2 SEC (11.4-15.4)
[2017-11-11 02:21] LABS: PARTIAL THROMBOPLASTIN TIME 27.5 SEC (23.5-35.8)
[2017-11-11 02:33] LABS: ALANINE AMINOTRANSFERASE 56 U/L (9-52); ALBUMIN 4.5 g/dL (3.5-5.0); ALKALINE PHOSPHATASE 102 U/L (38-126); ASPARTATE AMINO TRANSFERASE 87 U/L (14-36); BILIRUBIN,DIRECT 0.6 mg/dL (0.0-0.4); BILIRUBIN,TOTAL 1.6 mg/dL (0.2-1.3); BLOOD UREA NITROGEN 23 mg/dL (7-20); CARBON DIOXIDE 33 mmol/L (22-30); CHLORIDE 68 mmol/L (98-107); CREATINE KINASE 750 U/L (30-135); GLUCOSE 103 mg/dL (75-110); POTASSIUM 3.1 mmol/L (3.6-5.0); TOTAL PROTEIN 8.4 g/dL (6.3-8.2)
[2017-11-11 02:35] LABS: ANION GAP 16 (5-19)
[2017-11-11 02:39] LABS: SODIUM 117.3 mmol/L (137-145)
[2017-11-11 02:45] LABS: NT PRO BNP 1540 pg/mL (5-900)
[2017-11-11 02:46] LABS: TROPONIN I < 0.012 ng/mL
[2017-11-11] MEDS ORDERED: NORMAL SALINE 1000 ML 1,000 ML IV ONE (02:50)
[2017-11-11] MEDS ORDERED: POTASSIUM CHLORIDE 20 MEQ/15 ML UDCUP PO ONE (02:51)
[2017-11-11 02:54] LABS: APPEARANCE,URINE CLOUDY; BILIRUBIN,URINE NEGATIVE (NEGATIVE); GLUCOSE, URINE NEGATIVE (NEGATIVE); KETONES,URINE NEGATIVE (NEGATIVE); LEUKOCYTE ESTERASE,URINE MODERATE (NEGATIVE); NITRITE,URINE NEGATIVE (NEGATIVE); PROTEIN,URINE 100 mg/dL (NEGATIVE); URINE SPECIFIC GRAVITY 1.017
[2017-11-11 02:55] LABS: COLOR,URINE YELLOW
--- NOTE | 2017-11-11 03:28 | RADIOLOGY REPORT (SQ) ---
EXAM DESCRIPTION: XR CHEST 1 VIEW COMPLETED DATE/TME: 11/11/2017 01:43 CLINICAL HISTORY: cough COMPARISON: 03/09/2017 FINDINGS: Single frontal view of the chest. The cardiomediastinal silhouette has normal size and contour. No consolidation, pneumothorax, or pleural effusion. No displaced rib fractures identified. Upper abdominal soft tissues are unremarkable. IMPRESSION: 1. No acute pulmonary process identified.
[2017-11-11] MEDS ORDERED: LEVOFLOXACIN 750 MG/D5W RTU 750 MG/150 ML RTUPB IV ONE (03:33)
--- NOTE | 2017-11-11 03:42 | RADIOLOGY REPORT (SQ) ---
EXAM DESCRIPTION: CT LUMBAR SPINE WITHOUT IV CONTRAST, CT THORACIC SPINE WITHOUT IV CONTRAST COMPLETED DATE/TME: 11/11/2017 01:44 (accession [id number]), 11/11/2017 01:43 (accession [id number]) CLINICAL HISTORY: Back Pain COMPARISON: None available TECHNIQUE: Axial CT images of the thoracic and lumbar spine obtained without contrast. Coronal and sagittal reformatted images available. FINDINGS: Thoracic spine: Age-indeterminate compression deformity of the T7 vertebral body with approximately 65% loss of anterior vertebral body height with minimal retropulsion of fracture fragments. Age-indeterminate compression deformity of the T12 vertebral body with approximately 50% loss of anterior vertebral body height. Interval retropulsion of fracture fragments. No significant paravertebral soft tissue contusion or edema. No subluxation. Remaining thoracic vertebral body height preserved. Osteopenia. Minimal endplate spondylosis. Intervertebral disc height preserved. No significant osseous neural foraminal narrowing. No definite central canal narrowing. Moderate hiatal hernia. Atherosclerotic calcification of the thoracic aorta. Lumbar spine: Age-indeterminate compression deformity of the L5 vertebral body with approximately 10% loss of anterior vertebral body height. Osteopenia. Minimal compression deformity of the L2 vertebral body with approximately 10% loss of intervertebral body height. No cortical step-offs to suggest acuity. No significant paravertebral soft tissue contusion or edema. Intervertebral disc height preserved. Mild endplate spondylosis. Facet arthropathy. No definite osseous central canal or neural foraminal narrowing. Visualized portions of the sacrum and pelvis are intact. No subluxation Aortoiliac atherosclerosis. Scattered diverticula of the visualized colon. No other abnormalities in the visualized abdominal soft tissues. DLP: 415.97 mGy-cm IMPRESSION: 1. Age-indeterminate compression deformity of the T7 vertebral body with approximately 65% loss of anterior vertebral body height with minimal retropulsion of fracture fragments. This is at least new from 03/09/2017. Cortical step-offs identified which suggests this is likely at least subacute. 2. Age-indeterminate compression deformity of the T12 vertebral body with approximately 50% loss of vertebral body height and minimal retropulsion of fracture fragments. Cortical step-offs identified which suggests this is likely at least subacute. 3. Likely chronic compression deformities of the L2 and L5 vertebral bodies with approximately 10% loss of anterior vertebral body height. 4. Correlation with MRI of the thoracic and lumbar spine would be more accurate in determining acuity of the compression deformities. This exam was performed according to our departmental dose-optimization program, which includes automated exposure control, adjustment of the mA and/or kV according to patient size and/or use of iterative reconstruction technique.
[2017-11-11 03:48] LABS: URINE AMPHETAMINES SCREEN NEGATIVE; URINE BARBITURATES SCREEN NEGATIVE; URINE BENZODIAZEPINES SCREEN NEGATIVE; URINE COCAINE SCREEN NEGATIVE; URINE MARIJUANA (THC) SCREEN NEGATIVE; URINE METHADONE SCREEN NEGATIVE; URINE PHENCYCLIDINE SCREEN NEGATIVE
--- NOTE | 2017-11-11 04:32 | RADIOLOGY REPORT (SQ) ---
EXAM DESCRIPTION: CTA of the chest, abdomen, and pelvis with contrast. COMPLETED DATE/TME: 11/11/2017 02:51 CLINICAL HISTORY: Chest and abdominal pain. COMPARISON: None Available. TECHNIQUE: CTA of the chest, abdomen and pelvis performed following IV administration of 100 mL of Isovue-370. DLP: 852 mGycm FINDINGS: CTA: Contrast bolus: Contrast bolus is adequate. Thoracic aorta: Normal caliber of the ascending thoracic aorta, aortic arch, and descending thoracic aorta with atherosclerotic plaque. No evidence of dissection, aneurysm, or penetrating ulcer. Abdominal aorta: Normal caliber of the abdominal aorta. There is in-line flow into the iliac arteries. Atherosclerotic vascular calcification. No evidence of flow-limiting stenosis involving the celiac, superior mesenteric, or renal arteries. The origin of the inferior mesenteric artery is patent. No evidence of dissection or aneurysm. Chest: Thyroid:No abnormalities of the visualized thyroid. Great Vessels:Great vessels have normal anatomic configuration. Pulmonary arteries: No large central filling defects. No dilation of the main pulmonary artery. Heart:No cardiomegaly, significant pericardial effusion, or coronary artery atherosclerosis Lymph Nodes:No enlarged mediastinal lymph nodes identified. Esophagus: Large hiatal hernia. Other:No additional findings. Lungs:No alveolar or interstitial airspace opacities identified. Mild centrilobular and paraseptal emphysematous changes. Pleura:No pleural effusion or pneumothorax. Trachea/Airways: No acute abnormalities of the trachea. Likely chronic peribronchial cuffing. Abdomen: Liver: The liver has normal size and density. No intrahepatic mass or biliary dilatation. Gallbladder: No calcified gallstones. Spleen, Pancreas, and Adrenal Glands: The spleen, pancreas, and adrenal glands are unremarkable. Kidneys: The kidneys have normal size without evidence of solid mass or hydronephrosis. Scattered areas cortical thinning bilaterally may be related to previous infectious or ischemic insults. Vasculature: IVC is unremarkable. Stomach: Large hiatal hernia. Other: No free intraperitoneal air. No free fluid or lymphadenopathy. Pelvis: Bladder: Urinary bladder is unremarkable. Bowel: Scattered diverticula of the bowel. Mild diffuse wall thickening of the descending and sigmoid colon. Possible previously administered oral contrast. No dilated loops of large or small bowel. Appendix: The appendix is not identified. Pelvis:2.9 x 2.7 cm benign-appearing right ovarian cyst. Uterus is not enlarged. This is almost certainly benign. No imaging follow-up required. Likely calcified uterine fibroid. Bones: Age-indeterminate compression deformities of the T7, T12, L2, and L5 vertebral bodies. Please see dedicated CT of the thoracic and lumbar spine performed same day for further details. Degenerative endplate spondylosis of the thoracic and lumbar spine. Degenerative change of the hips. IMPRESSION: 1. No evidence of aortic dissection or aneurysm. 2. Compression deformities of the T7, T12, L2, and L5 vertebral bodies. Please see dedicated CT of the thoracic and lumbar spine performed same day for complete characterization. 3. Mild wall thickening of the descending and sigmoid colon. This may be related to under distention however colitis or inflammatory or infectious etiology could produce a similar appearance. 4. Diverticulosis without evidence of acute diverticulitis. 5. Large hiatal hernia. 6. Obstructive lung disease. This exam was performed according to our departmental dose-optimization program, which includes automated exposure control, adjustment of the mA and/or kV according to patient size and/or use of iterative reconstruction technique.
[2017-11-11] MEDS: POTASSI CL 40 MEQ/NS 1L 1,000 ML IV PRN ×2 (05:04→20:12)
--- NOTE | 2017-11-11 07:05 | PDOC H&P ---
History of Present Illness Admission Date/PCP: 11/11/17 04:03 WALKER FRAGOSO MD Patient complains of: back pain History of Present Illness: WEST WALTER is a 62 year old female presenting to the emergency department secondary to severe back pain. States it started yesterday when she was lying down. Denies falling. States she is also been vomiting and having diarrhea for the past 4 days. Since she has a history of 3 cracked ribs as well. States pain was so severe she was unable to get out of bed. Denies pain or burning with urination, denies blood in urine. Patient also mentioned she does have a history of hyponatremia. Past Medical History Cardiac Medical History: Reports: Hyperlipidema, Hypertension Denies: Coronary Artery Disease, Myocardial Infarction Pulmonary Medical History: Reports: Asthma, Bronchitis, Chronic Obstructive Pulmonary Disease (COPD), Pneumonia Neurological Medical History: Denies: Seizures GI Medical History: Reports: Gastroesophageal Reflux Disease Denies: Hepatitis, Hiatal Hernia Musculoskeltal Medical History: Reports: Arthritis - BACK Hematology: Denies: Anemia, Sickle Cell Disease Past Surgical History Past Surgical History: Reports: Herniorrhaphy, Tubal Ligation Denies: Amputation, Hysterectomy, Mastectomy, Pacemaker Social History Information Source: Patient Smoking Status: Current Every Day Smoker Frequency of Alcohol Use: None Hx Recreational Drug Use: No Family History Family History: None, Reviewed & Not Pertinent Parental Family History Reviewed: Yes Children Family History Reviewed: Yes Sibling(s) Family History Reviewed.: Yes Medication/Allergy Home Medications: Albuterol Sulfate [Ventolin Hfa Mdi 8 gm (ER Dispense)] 2 puff IH Q4H PRN Amlodipine Besylate [Norvasc 10 mg Tablet] 10 mg PO DAILY 07/14/11 Omeprazole [Prilosec] 40 mg PO DAILY 07/14/11 Alendronate Sodium [Fosamax 70 mg Tablet] 1 tab PO [id number] 05/10/15 Multivit-Min/Folic Acid/Vit K1 [Multi For Her 50 Plus Softgel] 400 mcg PO DAILY 05/10/15 Oxycodone HCl 30 mg PO Q4 PRN 05/10/15 Rosuvastatin Calcium [Crestor 10 mg Tablet] 10 mg PO QHS 05/10/15 Tiotropium Crystal [Spiriva Handihaler 18 mcg/dose (30 Dose)] 2 cap IH DAILY Zolpidem Tartrate [Ambien] 10 mg PO QHS PRN 05/10/15 Allergies/Adverse Reactions: codeine [Codeine] Allergy (Mild, Verified 08/24/16 07:12) rash propoxyphene napsylate [From Darvocet-N 100] Allergy (Mild, Verified 08/24/16 07 :12) rash Review of Systems Constitutional: ABSENT: chills, fever(s), headache(s), weight gain, weight loss Eyes: ABSENT: visual disturbances Ears: ABSENT: hearing changes Cardiovascular: ABSENT: chest pain, dyspnea on exertion, edema, orthropnea, palpitations Respiratory: ABSENT: cough, hemoptysis Gastrointestinal: ABSENT: abdominal pain, constipation, diarrhea, hematemesis, hematochezia, nausea, vomiting Genitourinary: ABSENT: dysuria, hematuria Musculoskeletal: PRESENT: back pain. ABSENT: joint swelling Integumentary: ABSENT: rash, wounds Neurological: ABSENT: abnormal gait, abnormal speech, confusion, dizziness, focal weakness, syncope Psychiatric: PRESENT: anxiety. ABSENT: depression, homidical ideation, suicidal ideation Endocrine: ABSENT: cold intolerance, heat intolerance, polydipsia, polyuria Hematologic/Lymphatic: ABSENT: easy bleeding, easy bruising Physical Exam Vital Signs: Temp Pulse Resp BP Pulse Ox 98.5 F 102 H 20 148/98 H 100 11/11/17 05:24 11/11/17 05:24 11/11/17 05:24 11/11/17 05:24 11/11/17 05:24 Intake & Output 11/09/17 11/10/17 11/11/17 06:59 06:59 06:59 Intake Total 1000 Balance 1000 General appearance: PRESENT: severe distress, thin Head exam: PRESENT: atraumatic, normocephalic Eye exam: PRESENT: conjunctiva pink, EOMI, PERRLA. ABSENT: scleral icterus Ear exam: PRESENT: normal external ear exam Mouth exam: PRESENT: moist, tongue midline Neck exam: ABSENT: carotid bruit, JVD, lymphadenopathy, thyromegaly Respiratory exam: PRESENT: clear to auscultation jacques. ABSENT: rales, rhonchi, wheezes Cardiovascular exam: PRESENT: tachycardia. ABSENT: diastolic murmur, rubs, systolic murmur Pulses: PRESENT: normal dorsalis pedis pul Vascular exam: PRESENT: normal capillary refill GI/Abdominal exam: PRESENT: normal bowel sounds, soft. ABSENT: distended, guarding, mass, organolmegaly, rebound, tenderness Rectal exam: PRESENT: deferred Extremities exam: PRESENT: full ROM. ABSENT: calf tenderness, clubbing, pedal edema Musculoskeletal exam: PRESENT: tenderness, other - Limited secondary to severe back pain. Neurological exam: PRESENT: alert, awake, oriented to person, oriented to place , oriented to time, oriented to situation, CN II-XII grossly intact. ABSENT: motor sensory deficit Psychiatric exam: PRESENT: agitated, appropriate affect, normal mood. ABSENT: homicidal ideation, suicidal ideation Skin exam: PRESENT: dry, intact, warm. ABSENT: cyanosis, rash Results Laboratory Results: 11/11/17 11/11/17 11/11/17 02:00 02:00 02:00 WBC 17.3 H Sodium 117.3 L* Potassium 3.1 L Creatine Kinase 750 H NT-Pro-B Natriuret Pep 1540 H Urine Urobilinogen Ur Leukocyte Esterase Urine Opiates Screen 11/11/17 11/11/17 02:35 02:35 WBC Sodium Potassium Creatine Kinase NT-Pro-B Natriuret Pep Urine Urobilinogen 2.0 H Ur Leukocyte Esterase MODERATE H Urine Opiates Screen UNCONFIRMED POSITIVE Impressions: Chest X-Ray 11/11/17 01:43 IMPRESSION: 1. No acute pulmonary process identified. Thoracic Spine CT 11/11/17 01:43 IMPRESSION: 1. Age-indeterminate compression deformity of the T7 vertebral body with approximately 65% loss of anterior vertebral body height with minimal retropulsion of fracture fragments. This is at least new from 03/09/2017. Cortical step-offs identified which suggests this is likely at least subacute. 2. Age-indeterminate compression deformity of the T12 vertebral body with approximately 50% loss of vertebral body height and minimal retropulsion of fracture fragments. Cortical step-offs identified which suggests this is likely at least subacute. 3. Likely chronic compression deformities of the L2 and L5 vertebral bodies with approximately 10% loss of anterior vertebral body height. 4. Correlation with MRI of the thoracic and lumbar spine would be more accurate in determining acuity of the compression deformities. This exam was performed according to our departmental dose-optimization program, which includes automated exposure control, adjustment of the mA and/or kV according to patient size and/or use of iterative reconstruction technique. Lumbar Spine CT 11/11/17 01:44 IMPRESSION: 1. Age-indeterminate compression deformity of the T7 vertebral body with approximately 65% loss of anterior vertebral body height with minimal retropulsion of fracture fragments. This is at least new from 03/09/2017. Cortical step-offs identified which suggests this is likely at least subacute. 2. Age-indeterminate compression deformity of the T12 vertebral body with approximately 50% loss of vertebral body height and minimal retropulsion of fracture fragments. Cortical step-offs identified which suggests this is likely at least subacute. 3. Likely chronic compression deformities of the L2 and L5 vertebral bodies with approximately 10% loss of anterior vertebral body height. 4. Correlation with MRI of the thoracic and lumbar spine would be more accurate in determining acuity of the compression deformities. This exam was performed according to our departmental dose-optimization program, which includes automated exposure control, adjustment of the mA and/or kV according to patient size and/or use of iterative reconstruction technique. Abdomen/Pelvis CTA 11/11/17 02:51 IMPRESSION: 1. No evidence of aortic dissection or aneurysm. 2. Compression deformities of the T7, T12, L2, and L5 vertebral bodies. Please see dedicated CT of the thoracic and lumbar spine performed same day for complete characterization. 3. Mild wall thickening of the descending and sigmoid colon. This may be related to under distention however colitis or inflammatory or infectious etiology could produce a similar appearance. 4. Diverticulosis without evidence of acute diverticulitis. 5. Large hiatal hernia. 6. Obstructive lung disease. This exam was performed according to our departmental dose-optimization program, which includes automated exposure control, adjustment of the mA and/or kV according to patient size and/or use of iterative reconstruction technique. Chest/Abdomen CTA 11/11/17 02:51 IMPRESSION: 1. No evidence of aortic dissection or aneurysm. 2. Compression deformities of the T7, T12, L2, and L5 vertebral bodies. Please see dedicated CT of the thoracic and lumbar spine performed same day for complete characterization. 3. Mild wall thickening of the descending and sigmoid colon. This may be related to under distention however colitis or inflammatory or infectious etiology could produce a similar appearance. 4. Diverticulosis without evidence of acute diverticulitis. 5. Large hiatal hernia. 6. Obstructive lung disease. This exam was performed according to our departmental dose-optimization program, which includes automated exposure control, adjustment of the mA and/or kV according to patient size and/or use of iterative reconstruction technique. Assessment & Plan - Diagnosis (1) Back pain Qualifiers: Back pain location: low back pain Chronicity: chronic Back pain laterality: unspecified Sciatica presence: unspecified whether sciatica present Qualified Code(s): M54.5 - Low back pain; G89.29 - Other chronic pain ; G89.29 - Other chronic pain (4) Hypertension Qualifiers: Hypertension type: unspecified Qualified Code(s): I10 - Essential (primary ) hypertension (5) UTI (urinary tract infection) Qualifiers: Urinary tract infection type: acute cystitis Hematuria presence: without hematuria Qualified Code(s): N30.00 - Acute cystitis without hematuria Plan: Patient to be admitted to [facility]. Started on normal saline at 100ml/hr. we will consult nephrology for severe hyponatremia. Potassium replaced, repeat CBC, BMP in a.m. Pain not adequately controlled at this time with Dilaudid, will consider switching over to additional agent along with p.o. medications. Orthopedic consultation pending. Continue patient on Levaquin for urinary tract infection, urine cultures pending. Continue patient's home medications. Smoking cessation highly encouraged. We will continue to monitor closely. CT abdomen pelvis pending for this a.m. - Time Time Spent: 30 to 50 Minutes Medications reviewed and adjusted accordingly: Yes Anticipated discharge: Acute Rehab
--- NOTE | 2017-11-11 09:33 | EKG REPORT ---
SEVERITY:- ABNORMAL ECG - SINUS TACHYCARDIA REPOL ABNRM SUGGESTS ISCHEMIA, DIFFUSE LEADS vs BASELINE ARTIFACTS BORDERLINE PROLONGED QT INTERVAL : Confirmed by: Aden Ocampo 11-Nov-2017 09:32:53
[2017-11-11] MEDS: HYDROMORPHONE HCL INJ/PF 2 MG/ML AMPULE IV PRN ×5 (09:47→22:41)
[2017-11-11] MEDS: ENOXAPARIN SODIUM INJ 40 MG/0.4 ML DISP.SYRIN SUBCUT SCH (10:10)
[2017-11-11 12:25] LABS: ANION GAP 12 (5-19); BLOOD UREA NITROGEN 16 mg/dL (7-20); CALCIUM 8.1 mg/dL (8.4-10.2); CARBON DIOXIDE 28 mmol/L (22-30); CHLORIDE 84 mmol/L (98-107); GLUCOSE 86 mg/dL (75-110); POTASSIUM 3.5 mmol/L (3.6-5.0); SODIUM 123.7 mmol/L (137-145)
[2017-11-11] MEDS ORDERED: HYDROMORPHONE HCL INJ/PF 2 MG/ML AMPULE ONE (12:33)
[2017-11-11] MEDS: KETOROLAC TROMETHAMINE INJ/PF 30 MG/1 ML SDV IV SCH ×2 (12:37→17:43)
--- NOTE | 2017-11-11 15:09 | Progress Note ---
Provider Note Provider Note: This patient was admitted earlier in the morning by my colleague Dr. Jimenez. She is complaining of needing better pain control. The patient is skeletal, awake, alert, and complaining of pain all over. Heart and lung sounds are within normal limits. No new complaints. Her vital signs and labs are within normal limits. Orthopedic surgery has been consulted.
[2017-11-11] MEDS: ZOLPIDEM TARTRATE 5 MG TABLET PO SCH (22:35)
[2017-11-12] MEDS: KETOROLAC TROMETHAMINE INJ/PF 30 MG/1 ML SDV IV SCH ×4 (00:41→18:52)
[2017-11-12] MEDS ORDERED: LORAZEPAM INJ 2 MG/1 ML VIAL ONE (02:42)
[2017-11-12] MEDS ORDERED: LORAZEPAM INJ 2 MG/1 ML VIAL IV ONE (03:00)
[2017-11-12] MEDS: LORAZEPAM INJ 2 MG/1 ML VIAL (TAPER DOSING) IV SCH ×4 (05:08→23:10)
[2017-11-12 06:40] LABS: ANION GAP 11 (5-19); BLOOD UREA NITROGEN 12 mg/dL (7-20); CALCIUM 8.3 mg/dL (8.4-10.2); CARBON DIOXIDE 24 mmol/L (22-30); CHLORIDE 93 mmol/L (98-107); GLUCOSE 82 mg/dL (75-110); POTASSIUM 3.4 mmol/L (3.6-5.0); SODIUM 128.4 mmol/L (137-145)
--- NOTE | 2017-11-12 06:43 | PDOC CONSULTATION ---
Consultation Consult Date: 11/12/17 Consult reason:: New onset back pain History of Present Illness Admission Date/PCP: 11/11/17 04:03 WALKER FRAGOSO MD History of Present Illness: WEST WALTER is a 62 year old female Patient is a 62-year-old white female with ongoing medical comorbidities who awoke with excruciating back pain. She was evaluated in the emergency room when it was admitted to the hospitalist service for further evaluation. Past Medical History Cardiac Medical History: Reports: Hyperlipidema, Hypertension Denies: Coronary Artery Disease, Myocardial Infarction Pulmonary Medical History: Reports: Asthma, Bronchitis, Chronic Obstructive Pulmonary Disease (COPD), Pneumonia Neurological Medical History: Denies: Seizures GI Medical History: Reports: Gastroesophageal Reflux Disease Denies: Hepatitis, Hiatal Hernia Musculoskeltal Medical History: Reports: Arthritis - BACK Hematology: Denies: Anemia, Sickle Cell Disease Past Surgical History Past Surgical History: Reports: Herniorrhaphy, Tubal Ligation Denies: Amputation, Hysterectomy, Mastectomy, Pacemaker Social History Information Source: Patient, [facility] Records Smoking Status: Current Every Day Smoker Cigarettes Packs Per Day: 1 Frequency of Alcohol Use: None Hx Recreational Drug Use: No Family History Family History: Reviewed & Not Pertinent Parental Family History Reviewed: No Children Family History Reviewed: No Sibling(s) Family History Reviewed.: No Medication/Allergy Home Medications: Alendronate Sodium [Fosamax 70 mg Tablet] 70 mg PO FINCH@1000 11/11/17 Amlodipine Besylate [Norvasc 10 mg Tablet] 10 mg PO DAILY 11/11/17 Omeprazole 20 mg PO DAILY 11/11/17 Oxycodone HCl 15 mg PO Q6HP PRN 11/11/17 Rosuvastatin Calcium [Crestor 10 mg Tablet] 10 mg PO QHS 11/11/17 Zolpidem Tartrate [Ambien] 10 mg PO QHS 11/11/17 Allergies/Adverse Reactions: codeine [Codeine] Allergy (Mild, Verified 08/24/16 07:12) rash propoxyphene napsylate [From Darvocet-N 100] Allergy (Mild, Verified 08/24/16 07 :12) rash Review of Systems All systems: as per H Physical Exam Vital Signs: Temp Pulse Resp BP Pulse Ox 37.6 C 104 H 20 148/84 H 94 11/12/17 01:00 11/12/17 02:00 11/12/17 01:00 11/12/17 01:00 11/12/17 01:00 Intake & Output 11/10/17 11/11/17 11/12/17 06:59 06:59 06:59 Intake Total 1127 1173 Balance 1127 1173 Physical Exam: Small middle-aged white female lying supine in bed with wrist restraints. Patient's difficult to arouse. General appearance: PRESENT: no acute distress, mild distress Head exam: PRESENT: normocephalic Respiratory exam: PRESENT: unlabored Cardiovascular exam: PRESENT: tachycardia Pulses: PRESENT: +1 pedal pulses bilateral Vascular exam: PRESENT: normal capillary refill GI/Abdominal exam: PRESENT: soft Rectal exam: PRESENT: deferred Extremities exam: PRESENT: other - Passive range of motion of the lower extremities without undue pain. Neurological exam: PRESENT: other - Difficult to arouse Skin exam: PRESENT: dry, intact, warm. ABSENT: cyanosis, rash Results Laboratory Results: 11/11/17 11:53 Sodium 123.7 L Potassium 3.5 L Chloride 84 L Carbon Dioxide 28 Anion Gap 12 BUN 16 Creatinine 0.69 Est GFR ( Amer) > 60 Est GFR (Non-Af Amer) > 60 Glucose 86 Calcium 8.1 L Impressions: Chest X-Ray 11/11/17 01:43 IMPRESSION: 1. No acute pulmonary process identified. Thoracic Spine CT 11/11/17 01:43 IMPRESSION: 1. Age-indeterminate compression deformity of the T7 vertebral body with approximately 65% loss of anterior vertebral body height with minimal retropulsion of fracture fragments. This is at least new from 03/09/2017. Cortical step-offs identified which suggests this is likely at least subacute. 2. Age-indeterminate compression deformity of the T12 vertebral body with approximately 50% loss of vertebral body height and minimal retropulsion of fracture fragments. Cortical step-offs identified which suggests this is likely at least subacute. 3. Likely chronic compression deformities of the L2 and L5 vertebral bodies with approximately 10% loss of anterior vertebral body height. 4. Correlation with MRI of the thoracic and lumbar spine would be more accurate in determining acuity of the compression deformities. This exam was performed according to our departmental dose-optimization program, which includes automated exposure control, adjustment of the mA and/or kV according to patient size and/or use of iterative reconstruction technique. Lumbar Spine CT 11/11/17 01:44 IMPRESSION: 1. Age-indeterminate compression deformity of the T7 vertebral body with approximately 65% loss of anterior vertebral body height with minimal retropulsion of fracture fragments. This is at least new from 03/09/2017. Cortical step-offs identified which suggests this is likely at least subacute. 2. Age-indeterminate compression deformity of the T12 vertebral body with approximately 50% loss of vertebral body height and minimal retropulsion of fracture fragments. Cortical step-offs identified which suggests this is likely at least subacute. 3. Likely chronic compression deformities of the L2 and L5 vertebral bodies with approximately 10% loss of anterior vertebral body height. 4. Correlation with MRI of the thoracic and lumbar spine would be more accurate in determining acuity of the compression deformities. This exam was performed according to our departmental dose-optimization program, which includes automated exposure control, adjustment of the mA and/or kV according to patient size and/or use of iterative reconstruction technique. Abdomen/Pelvis CTA 11/11/17 02:51 IMPRESSION: 1. No evidence of aortic dissection or aneurysm. 2. Compression deformities of the T7, T12, L2, and L5 vertebral bodies. Please see dedicated CT of the thoracic and lumbar spine performed same day for complete characterization. 3. Mild wall thickening of the descending and sigmoid colon. This may be related to under distention however colitis or inflammatory or infectious etiology could produce a similar appearance. 4. Diverticulosis without evidence of acute diverticulitis. 5. Large hiatal hernia. 6. Obstructive lung disease. This exam was performed according to our departmental dose-optimization program, which includes automated exposure control, adjustment of the mA and/or kV according to patient size and/or use of iterative reconstruction technique. Chest/Abdomen CTA 11/11/17 02:51 IMPRESSION: 1. No evidence of aortic dissection or aneurysm. 2. Compression deformities of the T7, T12, L2, and L5 vertebral bodies. Please see dedicated CT of the thoracic and lumbar spine performed same day for complete characterization. 3. Mild wall thickening of the descending and sigmoid colon. This may be related to under distention however colitis or inflammatory or infectious etiology could produce a similar appearance. 4. Diverticulosis without evidence of acute diverticulitis. 5. Large hiatal hernia. 6. Obstructive lung disease. This exam was performed according to our departmental dose-optimization program, which includes automated exposure control, adjustment of the mA and/or kV according to patient size and/or use of iterative reconstruction technique. Status: Imported from PACS Assessment & Plan - Diagnosis (1) Osteopenia Is this a current diagnosis for this admission?: Yes Plan: Patient currently taking alendronate and last had a documented bone scan in this hospital in 2012. At that point she had osteopenia not osteoporosis. Would recommend repeating the bone density test. If alendronate has been given for considerable period of time consideration should be given to stopping this medication and switching to an alternative bone mass preservation strategy (2) Vertebral fracture, closed Qualifiers: Encounter type: initial encounter Fracture of vertebra location: thoracic Thoracic vertebra fracture level: T7 Fracture morphology: unspecified fracture morphology Qualified Code(s): S22.069A - Unspecified fracture of T7- T8 vertebra, initial encounter for closed fracture Is this a current diagnosis for this admission?: Yes Plan: Patient with multiple compression fractures. The acuity disease of these fractures is uncertain. Clinical history would suggest is at least one component of this that is acute. [facility] traditionally takes care of compression fractures with consideration of vertebroplasty. I recommend that they be consulted. - Time Time Spent: 50 to 70 Minutes Anticipated discharge: Other Within: Other
[2017-11-12] MEDS: HYDROMORPHONE HCL INJ/PF 2 MG/ML AMPULE IV PRN ×7 (08:26→23:09)
[2017-11-12 08:35] LABS: ABSOLUTE EOSINOPHILS # (AUTO) 0.1 10^3/uL (0.0-0.6); ABSOLUTE LYMPHOCYTES (AUTO) 1.3 10^3/uL (0.5-4.7); ABSOLUTE MONOCYTES (AUTO) 0.8 10^3/uL (0.1-1.4); ABSOLUTE NEUT (AUTO) 9.4 10^3/uL (1.7-8.2); BASOPHILS % (AUTO) 0.2 % (0-2); EOSINOPHILS % (AUTO) 0.6 % (0-6); HEMATOCRIT 32.9 % (36.0-47.0); LYMPHOCYTES % (AUTO) 11.4 % (13-45); MEAN CORPUSCULAR HEMOGLOBIN 33.8 pg (27.0-33.4); MEAN CORPUSCULAR HGB CONC 35.1 g/dL (32.0-36.0); MEAN CORPUSCULAR VOLUME 96 fl (80-97); MONOCYTES % (AUTO) 6.7 % (3-13); PLATELET COUNT 192 10^3/uL (150-450); RED BLOOD COUNT 3.42 10^6/uL (3.72-5.28); RED CELL DISTRIBUTION WIDTH 13.9 % (11.5-14.0); SEGMENTED NEUTROPHILS % (AUTO) 81.1 % (42-78); TOTAL CELLS COUNTED % (AUTO) 100 %; WHITE BLOOD COUNT 11.7 10^3/uL (4.0-10.5)
[2017-11-12 08:36] LABS: HEMOGLOBIN 11.6 g/dL (12.0-15.5)
[2017-11-12] MEDS: POTASSI CL 40 MEQ/NS 1L 1,000 ML IV PRN ×2 (09:03→18:52)
[2017-11-12] MEDS: ENOXAPARIN SODIUM INJ 40 MG/0.4 ML DISP.SYRIN SUBCUT SCH (10:46)
[2017-11-12] MEDS ORDERED: LORAZEPAM INJ 2 MG/1 ML VIAL IV PRN (11:08)
--- NOTE | 2017-11-12 16:37 | PDOC PROGRESS REPORT ---
Subjective Progress Note for:: 11/12/17 Subjective:: Per nursing the patient has been quite difficult to manage overnight. She has developed alcohol withdrawal and has been placed on the alcohol withdrawal protocol. Nursing feels that her withdrawal symptoms as well as her complaints of pain are not being adequately managed. Reason For Visit: HYPONATREMIA,UTI,BACK PAIN Physical Exam Vital Signs: Temp Pulse Resp BP Pulse Ox 99.3 F 95 20 126/63 H 100 11/12/17 16:00 11/12/17 16:00 11/12/17 16:00 11/12/17 16:00 11/12/17 16:00 Intake & Output 11/11/17 11/12/17 11/13/17 06:59 06:59 06:59 Intake Total 1127 2173 Output Total 300 Balance 1127 2173 -300 General appearance: PRESENT: other - Currently the patient is chemically obtunded. Head exam: PRESENT: atraumatic, normocephalic Eye exam: PRESENT: PERRLA, other - I amunable to examine the patient's extermal ocular movements as the patient is unable to cooperate with exam.. ABSENT: scleral icterus Respiratory exam: PRESENT: other - No increased work of breathing. No wheezes, rales, or rhonchi. No tactile fremitus. Cardiovascular exam: PRESENT: RRR, tachycardia. ABSENT: gallop, rubs, systolic murmur Pulses: PRESENT: other - Diminished distal pulses. GI/Abdominal exam: PRESENT: firm, soft. ABSENT: guarding, hernia, normal bowel sounds, organolmegaly, tenderness Rectal exam: PRESENT: deferred Extremities exam: ABSENT: calf tenderness, pedal edema, tenderness Musculoskeletal exam: PRESENT: normal inspection. ABSENT: deformity, dislocation, tenderness Neurological exam: PRESENT: alert, other - The patient is currently chemically obtunded. She is unable to cooperate with neurological exam. Skin exam: PRESENT: dry, intact, warm Results Laboratory Results: 11/12/17 05:38 11/12/17 05:38 11/12/17 11/12/17 05:38 05:38 WBC 11.7 H RBC 3.42 L Hgb 11.6 L D Hct 32.9 L MCV 96 MCH 33.8 H MCHC 35.1 RDW 13.9 Plt Count 192 Seg Neutrophils % 81.1 H Lymphocytes % 11.4 L Monocytes % 6.7 Eosinophils % 0.6 Basophils % 0.2 Absolute Neutrophils 9.4 H Absolute Lymphocytes 1.3 Absolute Monocytes 0.8 Absolute Eosinophils 0.1 Absolute Basophils 0.0 Sodium 128.4 L Potassium 3.4 L Chloride 93 L Carbon Dioxide 24 Anion Gap 11 BUN 12 Creatinine 0.50 L Est GFR ( Amer) > 60 Est GFR (Non-Af Amer) > 60 Glucose 82 Calcium 8.3 L 11/12/17 05:38 NT-Pro-B Natriuret Pep 976 H Impressions: Chest X-Ray 11/11/17 01:43 IMPRESSION: 1. No acute pulmonary process identified. Thoracic Spine CT 11/11/17 01:43 IMPRESSION: 1. Age-indeterminate compression deformity of the T7 vertebral body with approximately 65% loss of anterior vertebral body height with minimal retropulsion of fracture fragments. This is at least new from 03/09/2017. Cortical step-offs identified which suggests this is likely at least subacute. 2. Age-indeterminate compression deformity of the T12 vertebral body with approximately 50% loss of vertebral body height and minimal retropulsion of fracture fragments. Cortical step-offs identified which suggests this is likely at least subacute. 3. Likely chronic compression deformities of the L2 and L5 vertebral bodies with approximately 10% loss of anterior vertebral body height. 4. Correlation with MRI of the thoracic and lumbar spine would be more accurate in determining acuity of the compression deformities. This exam was performed according to our departmental dose-optimization program, which includes automated exposure control, adjustment of the mA and/or kV according to patient size and/or use of iterative reconstruction technique. Lumbar Spine CT 11/11/17 01:44 IMPRESSION: 1. Age-indeterminate compression deformity of the T7 vertebral body with approximately 65% loss of anterior vertebral body height with minimal retropulsion of fracture fragments. This is at least new from 03/09/2017. Cortical step-offs identified which suggests this is likely at least subacute. 2. Age-indeterminate compression deformity of the T12 vertebral body with approximately 50% loss of vertebral body height and minimal retropulsion of fracture fragments. Cortical step-offs identified which suggests this is likely at least subacute. 3. Likely chronic compression deformities of the L2 and L5 vertebral bodies with approximately 10% loss of anterior vertebral body height. 4. Correlation with MRI of the thoracic and lumbar spine would be more accurate in determining acuity of the compression deformities. This exam was performed according to our departmental dose-optimization program, which includes automated exposure control, adjustment of the mA and/or kV according to patient size and/or use of iterative reconstruction technique. Abdomen/Pelvis CTA 11/11/17 02:51 IMPRESSION: 1. No evidence of aortic dissection or aneurysm. 2. Compression deformities of the T7, T12, L2, and L5 vertebral bodies. Please see dedicated CT of the thoracic and lumbar spine performed same day for complete characterization. 3. Mild wall thickening of the descending and sigmoid colon. This may be related to under distention however colitis or inflammatory or infectious etiology could produce a similar appearance. 4. Diverticulosis without evidence of acute diverticulitis. 5. Large hiatal hernia. 6. Obstructive lung disease. This exam was performed according to our departmental dose-optimization program, which includes automated exposure control, adjustment of the mA and/or kV according to patient size and/or use of iterative reconstruction technique. Chest/Abdomen CTA 11/11/17 02:51 IMPRESSION: 1. No evidence of aortic dissection or aneurysm. 2. Compression deformities of the T7, T12, L2, and L5 vertebral bodies. Please see dedicated CT of the thoracic and lumbar spine performed same day for complete characterization. 3. Mild wall thickening of the descending and sigmoid colon. This may be related to under distention however colitis or inflammatory or infectious etiology could produce a similar appearance. 4. Diverticulosis without evidence of acute diverticulitis. 5. Large hiatal hernia. 6. Obstructive lung disease. This exam was performed according to our departmental dose-optimization program, which includes automated exposure control, adjustment of the mA and/or kV according to patient size and/or use of iterative reconstruction technique. Assessment & Plan - Diagnosis (1) Alcohol withdrawal delirium Is this a current diagnosis for this admission?: Yes Plan: Alcohol withdrawal protocol. Coverage with ativan. (2) Back pain Qualifiers: Back pain location: low back pain Chronicity: chronic Back pain laterality: unspecified Sciatica presence: unspecified whether sciatica present Qualified Code(s): M54.5 - Low back pain; G89.29 - Other chronic pain ; G89.29 - Other chronic pain Is this a current diagnosis for this admission?: Yes Plan: Due to compression fractures. Orthopedic surgery and pain control have been consulted. (3) Compression fracture of body of thoracic vertebra Is this a current diagnosis for this admission?: Yes Plan: As per orthopedic surgery (4) Hypertension Qualifiers: Hypertension type: unspecified Qualified Code(s): I10 - Essential (primary ) hypertension Is this a current diagnosis for this admission?: Yes Plan: Continue home medications as possible. (6) UTI (urinary tract infection) Qualifiers: Urinary tract infection type: acute cystitis Hematuria presence: without hematuria Qualified Code(s): N30.00 - Acute cystitis without hematuria Is this a current diagnosis for this admission?: Yes Plan: IV levaquin - Time Time Spent with patient: 25-34 minutes - Inpatient Certification Medical Necessity: Failure to Improve With Outpatient Therapy, Need Close Monitoring Due to Risk of Patient Decompensation, Need For IV Fluids, Need For Continuous Telemetry Monitoring, Need for Pain Control, Risk of Complication if Not Cared For in Hospital
[2017-11-12] MEDS: ZOLPIDEM TARTRATE 5 MG TABLET PO SCH (22:27)
[2017-11-13] MEDS: KETOROLAC TROMETHAMINE INJ/PF 30 MG/1 ML SDV IV SCH ×4 (00:19→19:50)
[2017-11-13] MEDS: HYDROMORPHONE HCL INJ/PF 2 MG/ML AMPULE IV PRN ×9 (03:03→21:56)
[2017-11-13] MEDS: POTASSI CL 40 MEQ/NS 1L 1,000 ML IV PRN ×2 (05:04→15:37)
[2017-11-13] MEDS: LORAZEPAM INJ 2 MG/1 ML VIAL (TAPER DOSING) IV SCH ×2 (10:30→17:40)
[2017-11-13] MEDS: ENOXAPARIN SODIUM INJ 40 MG/0.4 ML DISP.SYRIN SUBCUT SCH (10:34)
[2017-11-13] MEDS: IPRATROPIUM/ALBUTEROL 0.5-2.5 MG/3 ML AMPUL NEB SCH ×3 (12:16→20:43)
--- NOTE | 2017-11-13 15:54 | PDOC PROGRESS REPORT ---
Subjective Progress Note for:: 11/13/17 Subjective:: The patient is more calm this morning. No new complaints. Reason For Visit: HYPONATREMIA,UTI,BACK PAIN Physical Exam Vital Signs: Temp Pulse Resp BP Pulse Ox 98.4 F 96 18 154/72 H 100 11/13/17 11:55 11/13/17 14:01 11/13/17 14:01 11/13/17 11:55 11/13/17 11:55 Intake & Output 11/12/17 11/13/17 11/14/17 06:59 06:59 06:59 Intake Total 2173 2222 1275 Output Total 300 Balance 2173 1922 1275 General appearance: PRESENT: thin Respiratory exam: PRESENT: other - No increased work of breathing.. ABSENT: rales, rhonchi, wheezes Cardiovascular exam: PRESENT: RRR. ABSENT: gallop, rubs, systolic murmur Pulses: PRESENT: normal dorsalis pedis pul GI/Abdominal exam: PRESENT: normal bowel sounds, soft. ABSENT: hernia, mass, organolmegaly, tenderness Extremities exam: ABSENT: clubbing, joint swelling, tenderness Musculoskeletal exam: PRESENT: normal inspection. ABSENT: deformity, dislocation, tenderness Neurological exam: PRESENT: alert, awake, oriented to person, oriented to place , oriented to time, oriented to situation, CN II-XII grossly intact. ABSENT: motor sensory deficit Psychiatric exam: PRESENT: anxious, other - tremulous Skin exam: PRESENT: dry, intact, warm Results Laboratory Results: 11/12/17 05:38 11/12/17 05:38 11/12/17 05:38 NT-Pro-B Natriuret Pep 976 H Impressions: Chest X-Ray 11/11/17 01:43 IMPRESSION: 1. No acute pulmonary process identified. Thoracic Spine CT 11/11/17 01:43 IMPRESSION: 1. Age-indeterminate compression deformity of the T7 vertebral body with approximately 65% loss of anterior vertebral body height with minimal retropulsion of fracture fragments. This is at least new from 03/09/2017. Cortical step-offs identified which suggests this is likely at least subacute. 2. Age-indeterminate compression deformity of the T12 vertebral body with approximately 50% loss of vertebral body height and minimal retropulsion of fracture fragments. Cortical step-offs identified which suggests this is likely at least subacute. 3. Likely chronic compression deformities of the L2 and L5 vertebral bodies with approximately 10% loss of anterior vertebral body height. 4. Correlation with MRI of the thoracic and lumbar spine would be more accurate in determining acuity of the compression deformities. This exam was performed according to our departmental dose-optimization program, which includes automated exposure control, adjustment of the mA and/or kV according to patient size and/or use of iterative reconstruction technique. Lumbar Spine CT 11/11/17 01:44 IMPRESSION: 1. Age-indeterminate compression deformity of the T7 vertebral body with approximately 65% loss of anterior vertebral body height with minimal retropulsion of fracture fragments. This is at least new from 03/09/2017. Cortical step-offs identified which suggests this is likely at least subacute. 2. Age-indeterminate compression deformity of the T12 vertebral body with approximately 50% loss of vertebral body height and minimal retropulsion of fracture fragments. Cortical step-offs identified which suggests this is likely at least subacute. 3. Likely chronic compression deformities of the L2 and L5 vertebral bodies with approximately 10% loss of anterior vertebral body height. 4. Correlation with MRI of the thoracic and lumbar spine would be more accurate in determining acuity of the compression deformities. This exam was performed according to our departmental dose-optimization program, which includes automated exposure control, adjustment of the mA and/or kV according to patient size and/or use of iterative reconstruction technique. Abdomen/Pelvis CTA 11/11/17 02:51 IMPRESSION: 1. No evidence of aortic dissection or aneurysm. 2. Compression deformities of the T7, T12, L2, and L5 vertebral bodies. Please see dedicated CT of the thoracic and lumbar spine performed same day for complete characterization. 3. Mild wall thickening of the descending and sigmoid colon. This may be related to under distention however colitis or inflammatory or infectious etiology could produce a similar appearance. 4. Diverticulosis without evidence of acute diverticulitis. 5. Large hiatal hernia. 6. Obstructive lung disease. This exam was performed according to our departmental dose-optimization program, which includes automated exposure control, adjustment of the mA and/or kV according to patient size and/or use of iterative reconstruction technique. Chest/Abdomen CTA 11/11/17 02:51 IMPRESSION: 1. No evidence of aortic dissection or aneurysm. 2. Compression deformities of the T7, T12, L2, and L5 vertebral bodies. Please see dedicated CT of the thoracic and lumbar spine performed same day for complete characterization. 3. Mild wall thickening of the descending and sigmoid colon. This may be related to under distention however colitis or inflammatory or infectious etiology could produce a similar appearance. 4. Diverticulosis without evidence of acute diverticulitis. 5. Large hiatal hernia. 6. Obstructive lung disease. This exam was performed according to our departmental dose-optimization program, which includes automated exposure control, adjustment of the mA and/or kV according to patient size and/or use of iterative reconstruction technique. Assessment & Plan - Diagnosis (1) Alcohol withdrawal delirium Is this a current diagnosis for this admission?: Yes Plan: Alcohol withdrawal protocol. Coverage with ativan. The patient appears more calm. (2) Back pain Qualifiers: Back pain location: low back pain Chronicity: chronic Back pain laterality: unspecified Sciatica presence: unspecified whether sciatica present Qualified Code(s): M54.5 - Low back pain; G89.29 - Other chronic pain ; G89.29 - Other chronic pain Is this a current diagnosis for this admission?: Yes Plan: Due to compression fractures. Orthopedic surgery and pain control have been consulted. continue pain management. PT and OT consult. (3) Compression fracture of body of thoracic vertebra Is this a current diagnosis for this admission?: Yes Plan: As per orthopedic surgery. I appreciate their input. (4) Hypertension Qualifiers: Hypertension type: unspecified Qualified Code(s): I10 - Essential (primary ) hypertension Is this a current diagnosis for this admission?: Yes (5) Hyponatremia Is this a current diagnosis for this admission?: Yes Plan: Improved. Monitor. (6) UTI (urinary tract infection) Qualifiers: Urinary tract infection type: acute cystitis Hematuria presence: without hematuria Qualified Code(s): N30.00 - Acute cystitis without hematuria Is this a current diagnosis for this admission?: Yes Plan: IV levaquin - Time Time Spent with patient: 25-34 minutes Medications reviewed and adjusted accordingly: Yes - Inpatient Certification Based on my medical assessment, after consideration of the patient's comorbidities, presenting symptoms, or acuity I expect that the services needed warrant INPATIENT care.: Yes I certify that my determination is in accordance with my understanding of Medicare's requirements for reasonable and necessary INPATIENT services [42 CFR 412.3e].: Yes Medical Necessity: Significant Comorbidiites Make Outpatient Treatment Too Risky , Need For IV Fluids, Need For Continuous Telemetry Monitoring, Need for Neurological Checks, Need for Pain Control, Need for IV Antibiotics, Need for Surgery
[2017-11-13] MEDS: ZOLPIDEM TARTRATE 5 MG TABLET PO SCH (21:56)
[2017-11-14] MEDS: KETOROLAC TROMETHAMINE INJ/PF 30 MG/1 ML SDV IV SCH ×5 (00:20→23:29)
[2017-11-14] MEDS: LORAZEPAM INJ 2 MG/1 ML VIAL (TAPER DOSING) IV SCH ×5 (00:47→23:41)
[2017-11-14] MEDS: POTASSI CL 40 MEQ/NS 1L 1,000 ML IV PRN ×3 (01:51→22:52)
[2017-11-14] MEDS: IPRATROPIUM/ALBUTEROL 0.5-2.5 MG/3 ML AMPUL NEB SCH ×4 (02:33→20:28)
[2017-11-14] MEDS: HYDROMORPHONE HCL INJ/PF 2 MG/ML AMPULE IV PRN ×8 (02:59→19:01)
[2017-11-14 07:51] LABS: ANION GAP 10 (5-19); BLOOD UREA NITROGEN 14 mg/dL (7-20); CALCIUM 8.9 mg/dL (8.4-10.2); CARBON DIOXIDE 21 mmol/L (22-30); CHLORIDE 104 mmol/L (98-107); GLUCOSE 100 mg/dL (75-110); POTASSIUM 4.8 mmol/L (3.6-5.0); SODIUM 134.6 mmol/L (137-145)
[2017-11-14] MEDS: ENOXAPARIN SODIUM INJ 40 MG/0.4 ML DISP.SYRIN SUBCUT SCH (10:31)
--- NOTE | 2017-11-14 14:55 | PDOC PROGRESS REPORT ---
Subjective Progress Note for:: 11/14/17 Subjective:: The patient is without new complaints. Reason For Visit: HYPONATREMIA,UTI,BACK PAIN Physical Exam Vital Signs: Temp Pulse Resp BP Pulse Ox 99.7 F 108 H 20 151/85 H 100 11/14/17 10:48 11/14/17 14:23 11/14/17 14:23 11/14/17 10:48 11/14/17 10:48 Intake & Output 11/13/17 11/14/17 11/15/17 06:59 06:59 06:59 Intake Total 2222 2575 1067 Output Total 300 400 900 Balance 1922 2175 167 General appearance: PRESENT: disheveled, other - somnolent, more calm, but still impulsive per nursing. Respiratory exam: PRESENT: other - No increased work of breathing.. ABSENT: rales, rhonchi, wheezes Cardiovascular exam: PRESENT: rubs. ABSENT: gallop, RRR, systolic murmur GI/Abdominal exam: PRESENT: normal bowel sounds, soft. ABSENT: distended, hernia, mass, organolmegaly, tenderness Extremities exam: ABSENT: clubbing, joint swelling, pedal edema Neurological exam: PRESENT: CN II-XII grossly intact, other - somnolent, but arousable. ABSENT: motor sensory deficit Skin exam: PRESENT: dry, intact, warm Results Laboratory Results: 11/12/17 05:38 11/14/17 06:16 11/14/17 06:16 Sodium 134.6 L Potassium 4.8 Chloride 104 Carbon Dioxide 21 L Anion Gap 10 BUN 14 Creatinine 0.51 L Est GFR ( Amer) > 60 Est GFR (Non-Af Amer) > 60 Glucose 100 Calcium 8.9 11/12/17 05:38 NT-Pro-B Natriuret Pep 976 H Impressions: Chest X-Ray 11/11/17 01:43 IMPRESSION: 1. No acute pulmonary process identified. Thoracic Spine CT 11/11/17 01:43 IMPRESSION: 1. Age-indeterminate compression deformity of the T7 vertebral body with approximately 65% loss of anterior vertebral body height with minimal retropulsion of fracture fragments. This is at least new from 03/09/2017. Cortical step-offs identified which suggests this is likely at least subacute. 2. Age-indeterminate compression deformity of the T12 vertebral body with approximately 50% loss of vertebral body height and minimal retropulsion of fracture fragments. Cortical step-offs identified which suggests this is likely at least subacute. 3. Likely chronic compression deformities of the L2 and L5 vertebral bodies with approximately 10% loss of anterior vertebral body height. 4. Correlation with MRI of the thoracic and lumbar spine would be more accurate in determining acuity of the compression deformities. This exam was performed according to our departmental dose-optimization program, which includes automated exposure control, adjustment of the mA and/or kV according to patient size and/or use of iterative reconstruction technique. Lumbar Spine CT 11/11/17 01:44 IMPRESSION: 1. Age-indeterminate compression deformity of the T7 vertebral body with approximately 65% loss of anterior vertebral body height with minimal retropulsion of fracture fragments. This is at least new from 03/09/2017. Cortical step-offs identified which suggests this is likely at least subacute. 2. Age-indeterminate compression deformity of the T12 vertebral body with approximately 50% loss of vertebral body height and minimal retropulsion of fracture fragments. Cortical step-offs identified which suggests this is likely at least subacute. 3. Likely chronic compression deformities of the L2 and L5 vertebral bodies with approximately 10% loss of anterior vertebral body height. 4. Correlation with MRI of the thoracic and lumbar spine would be more accurate in determining acuity of the compression deformities. This exam was performed according to our departmental dose-optimization program, which includes automated exposure control, adjustment of the mA and/or kV according to patient size and/or use of iterative reconstruction technique. Abdomen/Pelvis CTA 11/11/17 02:51 IMPRESSION: 1. No evidence of aortic dissection or aneurysm. 2. Compression deformities of the T7, T12, L2, and L5 vertebral bodies. Please see dedicated CT of the thoracic and lumbar spine performed same day for complete characterization. 3. Mild wall thickening of the descending and sigmoid colon. This may be related to under distention however colitis or inflammatory or infectious etiology could produce a similar appearance. 4. Diverticulosis without evidence of acute diverticulitis. 5. Large hiatal hernia. 6. Obstructive lung disease. This exam was performed according to our departmental dose-optimization program, which includes automated exposure control, adjustment of the mA and/or kV according to patient size and/or use of iterative reconstruction technique. Chest/Abdomen CTA 11/11/17 02:51 IMPRESSION: 1. No evidence of aortic dissection or aneurysm. 2. Compression deformities of the T7, T12, L2, and L5 vertebral bodies. Please see dedicated CT of the thoracic and lumbar spine performed same day for complete characterization. 3. Mild wall thickening of the descending and sigmoid colon. This may be related to under distention however colitis or inflammatory or infectious etiology could produce a similar appearance. 4. Diverticulosis without evidence of acute diverticulitis. 5. Large hiatal hernia. 6. Obstructive lung disease. This exam was performed according to our departmental dose-optimization program, which includes automated exposure control, adjustment of the mA and/or kV according to patient size and/or use of iterative reconstruction technique. Assessment & Plan - Diagnosis (1) Alcohol withdrawal delirium Is this a current diagnosis for this admission?: Yes Plan: Alcohol withdrawal protocol. Coverage with ativan. (2) Back pain Qualifiers: Back pain location: low back pain Chronicity: chronic Back pain laterality: unspecified Sciatica presence: unspecified whether sciatica present Qualified Code(s): M54.5 - Low back pain; G89.29 - Other chronic pain ; G89.29 - Other chronic pain Is this a current diagnosis for this admission?: Yes Plan: Due to compression fractures. Orthopedic surgery and pain control have been consulted. Continue pain management. PT and OT consult. (3) Compression fracture of body of thoracic vertebra Is this a current diagnosis for this admission?: Yes Plan: As per orthopedic surgery. I appreciate their input. (4) Hypertension Qualifiers: Hypertension type: unspecified Qualified Code(s): I10 - Essential (primary ) hypertension Is this a current diagnosis for this admission?: Yes Plan: Continue home medications as possible. (5) Hyponatremia Is this a current diagnosis for this admission?: Yes Plan: Resolved (6) UTI (urinary tract infection) Qualifiers: Urinary tract infection type: acute cystitis Hematuria presence: without hematuria Qualified Code(s): N30.00 - Acute cystitis without hematuria Is this a current diagnosis for this admission?: Yes Plan: IV levaquin. Renal ultrasound shows no obstruction of indication of pyelonephritis. (7) Urinary retention with incomplete bladder emptying Is this a current diagnosis for this admission?: Yes Plan: Will start flomax. Renal ultrasound shows no indication of pyelonephritis - Time Time Spent with patient: 25-34 minutes Medications reviewed and adjusted accordingly: Yes
[2017-11-14] MEDS: ONDANSETRON HCL INJ/PF 4 MG/2 ML SDV IV PRN (17:32)
[2017-11-14] MEDS: ZOLPIDEM TARTRATE 5 MG TABLET PO SCH (22:52)
--- NOTE | 2017-11-15 00:31 | CONSULTATION REPORT E ---
Consultation Report NAME: WEST WALTER : 1955 AGE: 62Y DATE: 11/12/2017 320 A TO: ANDREA WU PA-C FROM: ELLY MUHAMMAD M.D. Requesting Physician TEAM PAIN MANAGEMENT CONSULTATION CHIEF COMPLAINT: Back pain. HISTORY OF PRESENT ILLNESS: This 62-year-old female admitted yesterday for increased back pain. She denies incontinence, saddle anesthesia or weakness, paralysis, footdrop. She is currently a chronic pain patient with [facility] and on OxyIR 15 mg q.6 hours. Per the patient's nurse she was very combative upon admission and needing to be put on restraints. She was given IV Dilaudid which seems to be helping the patient to calm her down so she is not combative anymore. Also, per the nurse, upon initial screening she was found to have excessive amounts of alcohol suspect for alcohol abuse and needing inpatient alcohol detox. PAST MEDICAL HISTORY: 1. Hypertension. 2. Hyperlipidemia. 3. Chronic back pain and long-term opioid use. 4. Osteopenia/Osteoporosis. 5. GERD. 6. Asthma. 7. COPD. PAST SURGICAL HISTORY: 1. Hernia repairs. 2. Tubal ligation. SOCIAL HISTORY: Positive smoker. Positive heavy alcohol consumption per the patient's nurse, per the patient's boyfriend. No recreational drug use. FAMILY HISTORY: Not available. MEDICATIONS: 1. Ventolin. 2. Norvasc. 3. Prilosec. 4. Fosamax. 5. Multivitamin. 6. Crestor. 7. Spiriva. 8. Ambien. 9. Oxycodone 15 mg q.6 hours, also verified with the [place] Controlled Substance Database. ALLERGIES: 1. CODEINE. 2. DARVOCET. REVIEW OF SYSTEMS: Per the HPI. DIAGNOSTICS: Thoracic and lumbar CT scans 11/11, revealed age indeterminant compression fracture of T7 with a 65% loss of vertebral body height, minimal retropulsion with the fracture fragments, new from 03/09/17. Also an age indeterminant compression fracture at T12 with 50% loss of the vertebral body height, minimal retropulsion of the fracture fragments, and likely chronic compression deformities of L2 and L5 with about a 10% loss of vertebral body heights. PHYSICAL EXAMINATION: VITAL SIGNS: Temperature 98.6, pulse 80, blood pressure 149/82, respiration 20, oxygen 100% on 2 liters via nasal cannula. GENERAL: A 62-year-old female sitting up in bed under restraints, in no acute distress. LUNGS: Respirations even and unlabored work of breathing and she is on oxygen via nasal cannula. NEUROLOGIC: Alert and oriented x3. Cranial nerves II-XII grossly intact. ASSESSMENT: 1. Acute on chronic back pain. 2. Thoracic compression fractures. 3. Alcohol abuse. PLAN: I feel pain management as far as treatment of compression fractures is not the priority right now. The priority should be to focus on treating underlying alcohol abuse disorder and finishing inpatient alcohol detox regimen. We could consider an MRI for further evaluation of the fractures and consideration for kyphoplasty in the future. As far as medication management the IV Dilaudid appears to be working well enough for now, once the pain is better controlled and detox is progressing we could consider just resuming her at home medication regimen of the oxycodone 15 mg q.6 hours and keeping something extra on for breakthrough for the more severe back pains. DICTATING PHYSICIAN: ROSITA BARAKAT PA-C For Enrique Strauss MD [id number] PHY#: [id number] ID: [id number] JOB#: [id number] ACCT: [id number] cc:ANDREA WU PA-C > MTDD
[2017-11-15] MEDS: IPRATROPIUM/ALBUTEROL 0.5-2.5 MG/3 ML AMPUL NEB SCH ×4 (02:51→19:52)
[2017-11-15] MEDS: KETOROLAC TROMETHAMINE INJ/PF 30 MG/1 ML SDV IV SCH ×4 (06:22→23:23)
[2017-11-15] MEDS: LORAZEPAM INJ 2 MG/1 ML VIAL (TAPER DOSING) IV SCH ×3 (08:37→23:22)
[2017-11-15] MEDS: ENOXAPARIN SODIUM INJ 40 MG/0.4 ML DISP.SYRIN SUBCUT SCH (09:19)
[2017-11-15] MEDS: POTASSI CL 40 MEQ/NS 1L 1,000 ML IV PRN ×2 (09:23→18:44)
[2017-11-15] MEDS: HYDROMORPHONE HCL INJ/PF 2 MG/ML AMPULE IV PRN ×4 (11:35→23:24)
[2017-11-15] MEDS ORDERED: TAMSULOSIN HCL 0.4 MG CAP.SR.24H PO ONE (17:01)
--- NOTE | 2017-11-15 17:01 | PDOC PROGRESS REPORT ---
Subjective Progress Note for:: 11/15/17 Subjective:: The patient seems more calm and cogent today. Her speech is intelligible and appropriate. Reason For Visit: HYPONATREMIA,UTI,BACK PAIN Physical Exam Vital Signs: Temp Pulse Resp BP Pulse Ox 99.3 F 104 H 16 129/82 H 97 11/15/17 11:28 11/15/17 14:00 11/15/17 14:00 11/15/17 11:28 11/15/17 16:27 Intake & Output 11/14/17 11/15/17 11/16/17 06:59 06:59 06:59 Intake Total 2575 2292 1300 Output Total 400 1600 Balance 2175 692 1300 General appearance: PRESENT: no acute distress, cooperative, thin Respiratory exam: PRESENT: wheezes, other - No increased work of breathing.. ABSENT: rales, rhonchi Cardiovascular exam: PRESENT: RRR. ABSENT: gallop, rubs, systolic murmur Pulses: PRESENT: normal dorsalis pedis pul. ABSENT: normal femoral pulses GI/Abdominal exam: PRESENT: soft. ABSENT: hernia, mass, organolmegaly, tenderness Extremities exam: PRESENT: full ROM. ABSENT: clubbing, tenderness, +1 edema Musculoskeletal exam: PRESENT: normal inspection. ABSENT: deformity, dislocation, tenderness Neurological exam: PRESENT: alert, awake, oriented to person, oriented to place , oriented to time, oriented to situation, CN II-XII grossly intact. ABSENT: motor sensory deficit Psychiatric exam: PRESENT: appropriate affect, normal mood Skin exam: PRESENT: dry, intact, warm Results Laboratory Results: 11/12/17 05:38 11/14/17 06:16 11/12/17 05:38 NT-Pro-B Natriuret Pep 976 H Impressions: Chest X-Ray 11/11/17 01:43 IMPRESSION: 1. No acute pulmonary process identified. Thoracic Spine CT 11/11/17 01:43 IMPRESSION: 1. Age-indeterminate compression deformity of the T7 vertebral body with approximately 65% loss of anterior vertebral body height with minimal retropulsion of fracture fragments. This is at least new from 03/09/2017. Cortical step-offs identified which suggests this is likely at least subacute. 2. Age-indeterminate compression deformity of the T12 vertebral body with approximately 50% loss of vertebral body height and minimal retropulsion of fracture fragments. Cortical step-offs identified which suggests this is likely at least subacute. 3. Likely chronic compression deformities of the L2 and L5 vertebral bodies with approximately 10% loss of anterior vertebral body height. 4. Correlation with MRI of the thoracic and lumbar spine would be more accurate in determining acuity of the compression deformities. This exam was performed according to our departmental dose-optimization program, which includes automated exposure control, adjustment of the mA and/or kV according to patient size and/or use of iterative reconstruction technique. Lumbar Spine CT 11/11/17 01:44 IMPRESSION: 1. Age-indeterminate compression deformity of the T7 vertebral body with approximately 65% loss of anterior vertebral body height with minimal retropulsion of fracture fragments. This is at least new from 03/09/2017. Cortical step-offs identified which suggests this is likely at least subacute. 2. Age-indeterminate compression deformity of the T12 vertebral body with approximately 50% loss of vertebral body height and minimal retropulsion of fracture fragments. Cortical step-offs identified which suggests this is likely at least subacute. 3. Likely chronic compression deformities of the L2 and L5 vertebral bodies with approximately 10% loss of anterior vertebral body height. 4. Correlation with MRI of the thoracic and lumbar spine would be more accurate in determining acuity of the compression deformities. This exam was performed according to our departmental dose-optimization program, which includes automated exposure control, adjustment of the mA and/or kV according to patient size and/or use of iterative reconstruction technique. Abdomen/Pelvis CTA 11/11/17 02:51 IMPRESSION: 1. No evidence of aortic dissection or aneurysm. 2. Compression deformities of the T7, T12, L2, and L5 vertebral bodies. Please see dedicated CT of the thoracic and lumbar spine performed same day for complete characterization. 3. Mild wall thickening of the descending and sigmoid colon. This may be related to under distention however colitis or inflammatory or infectious etiology could produce a similar appearance. 4. Diverticulosis without evidence of acute diverticulitis. 5. Large hiatal hernia. 6. Obstructive lung disease. This exam was performed according to our departmental dose-optimization program, which includes automated exposure control, adjustment of the mA and/or kV according to patient size and/or use of iterative reconstruction technique. Chest/Abdomen CTA 11/11/17 02:51 IMPRESSION: 1. No evidence of aortic dissection or aneurysm. 2. Compression deformities of the T7, T12, L2, and L5 vertebral bodies. Please see dedicated CT of the thoracic and lumbar spine performed same day for complete characterization. 3. Mild wall thickening of the descending and sigmoid colon. This may be related to under distention however colitis or inflammatory or infectious etiology could produce a similar appearance. 4. Diverticulosis without evidence of acute diverticulitis. 5. Large hiatal hernia. 6. Obstructive lung disease. This exam was performed according to our departmental dose-optimization program, which includes automated exposure control, adjustment of the mA and/or kV according to patient size and/or use of iterative reconstruction technique. Assessment & Plan - Diagnosis (1) Alcohol withdrawal delirium Is this a current diagnosis for this admission?: Yes Plan: Alcohol withdrawal protocol. Will change to PO ativan only. Coverage with ativan. (2) Back pain Qualifiers: Back pain location: low back pain Chronicity: chronic Back pain laterality: unspecified Sciatica presence: unspecified whether sciatica present Qualified Code(s): M54.5 - Low back pain; G89.29 - Other chronic pain ; G89.29 - Other chronic pain Is this a current diagnosis for this admission?: Yes Plan: Due to compression fractures. PT and OT eval and treat. (3) Compression fracture of body of thoracic vertebra Is this a current diagnosis for this admission?: Yes Plan: As per orthopedic surgery. I appreciate their input. Orthopedic surgery and [facility] pain control have been consulted. (4) Hypertension Qualifiers: Hypertension type: unspecified Qualified Code(s): I10 - Essential (primary ) hypertension Is this a current diagnosis for this admission?: Yes Plan: Continue home medications as possible. (5) Hyponatremia Is this a current diagnosis for this admission?: Yes Plan: Resolved (6) UTI (urinary tract infection) Qualifiers: Urinary tract infection type: acute cystitis Hematuria presence: without hematuria Qualified Code(s): N30.00 - Acute cystitis without hematuria Is this a current diagnosis for this admission?: Yes Plan: IV levaquin. Renal ultrasound shows no obstruction of indication of pyelonephritis. (7) Urinary retention with incomplete bladder emptying Is this a current diagnosis for this admission?: Yes Plan: Will start flomax. Renal ultrasound shows no indication of pyelonephritis - Time Time Spent with patient: 25-34 minutes Medications reviewed and adjusted accordingly: Yes
[2017-11-15] MEDS: ZOLPIDEM TARTRATE 5 MG TABLET PO SCH (21:53)
[2017-11-16] MEDS: IPRATROPIUM/ALBUTEROL 0.5-2.5 MG/3 ML AMPUL NEB SCH ×3 (02:09→14:17)
[2017-11-16] MEDS: HYDROMORPHONE HCL INJ/PF 2 MG/ML AMPULE IV PRN ×3 (03:42→14:22)
[2017-11-16] MEDS: POTASSI CL 40 MEQ/NS 1L 1,000 ML IV PRN (05:19)
[2017-11-16] MEDS: KETOROLAC TROMETHAMINE INJ/PF 30 MG/1 ML SDV IV SCH (05:19)
--- NOTE | 2017-11-16 10:55 | PDOC DISCHARGE SUMMARY ---
General - Admit/Disc Date/PCP Admission Date/Primary Care Provider: 11/11/17 04:03 WALKER FRAGOSO MD Discharge Date: 11/16/17 - Additional Information Home Medications: Alendronate Sodium [Fosamax 70 mg Tablet] 70 mg PO FINCH@1000 11/11/17 Amlodipine Besylate [Norvasc 10 mg Tablet] 10 mg PO DAILY 11/11/17 Omeprazole 20 mg PO DAILY 11/11/17 Oxycodone HCl 15 mg PO Q6HP PRN 11/11/17 Rosuvastatin Calcium [Crestor 10 mg Tablet] 10 mg PO QHS 11/11/17 Zolpidem Tartrate [Ambien] 10 mg PO QHS 11/11/17 History of Present Illness History of Present Illness: WEST WALTER is a 62 year old female presenting to the emergency department secondary to severe back pain. States it started yesterday when she was lying down. Denies falling. States she is also been vomiting and having diarrhea for the past 4 days. Since she has a history of 3 cracked ribs as well. States pain was so severe she was unable to get out of bed. Denies pain or burning with urination, denies blood in urine. Patient also mentioned she does have a history of hyponatremia. Hospital Course Hospital Course: This is 63 years old female patient who looks older than her stated age presented with chief complaint of back pain. Patient has underlying degenerative disc disease and multiple compression deformity involving the thoracic and lumbar spine evidenced on CT scan of the lumbar and thoracic spines. After presentation patient found to have severe hyponatremia with sodium of 117 for which she has been hydrated gently and today on the day of discharge her sodium is 134. Her back pain is relatively improved and patient has upcoming appointment with pain management group. Her vitals and her labs are within normal limits patient is going to be discharged in stable condition I will continue all her home medications. Physical Exam Vital Signs: Temp Pulse Resp BP Pulse Ox 98.3 F 100 20 171/89 H 99 11/16/17 07:39 11/16/17 08:26 11/16/17 08:26 11/16/17 07:39 11/16/17 08:26 Intake & Output 11/15/17 11/16/17 11/17/17 06:59 06:59 06:59 Intake Total 2292 4497 Output Total 1600 450 Balance 692 4047 General appearance: PRESENT: no acute distress Head exam: PRESENT: atraumatic Eye exam: PRESENT: conjunctiva pink Mouth exam: PRESENT: moist Teeth exam: PRESENT: edentulous Neurological exam: PRESENT: alert, awake, oriented to time, oriented to situation Results Laboratory Results: 11/12/17 05:38 11/14/17 06:16 11/11/17 06:54 Blood Blood Culture - Final NO GROWTH IN 5 DAYS 11/11/17 05:19 Blood Blood Culture - Final NO GROWTH IN 5 DAYS 11/12/17 05:38 NT-Pro-B Natriuret Pep 976 H Impressions: Chest X-Ray 11/11/17 01:43 IMPRESSION: 1. No acute pulmonary process identified. Thoracic Spine CT 11/11/17 01:43 IMPRESSION: 1. Age-indeterminate compression deformity of the T7 vertebral body with approximately 65% loss of anterior vertebral body height with minimal retropulsion of fracture fragments. This is at least new from 03/09/2017. Cortical step-offs identified which suggests this is likely at least subacute. 2. Age-indeterminate compression deformity of the T12 vertebral body with approximately 50% loss of vertebral body height and minimal retropulsion of fracture fragments. Cortical step-offs identified which suggests this is likely at least subacute. 3. Likely chronic compression deformities of the L2 and L5 vertebral bodies with approximately 10% loss of anterior vertebral body height. 4. Correlation with MRI of the thoracic and lumbar spine would be more accurate in determining acuity of the compression deformities. This exam was performed according to our departmental dose-optimization program, which includes automated exposure control, adjustment of the mA and/or kV according to patient size and/or use of iterative reconstruction technique. Lumbar Spine CT 11/11/17 01:44 IMPRESSION: 1. Age-indeterminate compression deformity of the T7 vertebral body with approximately 65% loss of anterior vertebral body height with minimal retropulsion of fracture fragments. This is at least new from 03/09/2017. Cortical step-offs identified which suggests this is likely at least subacute. 2. Age-indeterminate compression deformity of the T12 vertebral body with approximately 50% loss of vertebral body height and minimal retropulsion of fracture fragments. Cortical step-offs identified which suggests this is likely at least subacute. 3. Likely chronic compression deformities of the L2 and L5 vertebral bodies with approximately 10% loss of anterior vertebral body height. 4. Correlation with MRI of the thoracic and lumbar spine would be more accurate in determining acuity of the compression deformities. This exam was performed according to our departmental dose-optimization program, which includes automated exposure control, adjustment of the mA and/or kV according to patient size and/or use of iterative reconstruction technique. Abdomen/Pelvis CTA 11/11/17 02:51 IMPRESSION: 1. No evidence of aortic dissection or aneurysm. 2. Compression deformities of the T7, T12, L2, and L5 vertebral bodies. Please see dedicated CT of the thoracic and lumbar spine performed same day for complete characterization. 3. Mild wall thickening of the descending and sigmoid colon. This may be related to under distention however colitis or inflammatory or infectious etiology could produce a similar appearance. 4. Diverticulosis without evidence of acute diverticulitis. 5. Large hiatal hernia. 6. Obstructive lung disease. This exam was performed according to our departmental dose-optimization program, which includes automated exposure control, adjustment of the mA and/or kV according to patient size and/or use of iterative reconstruction technique. Chest/Abdomen CTA 11/11/17 02:51 IMPRESSION: 1. No evidence of aortic dissection or aneurysm. 2. Compression deformities of the T7, T12, L2, and L5 vertebral bodies. Please see dedicated CT of the thoracic and lumbar spine performed same day for complete characterization. 3. Mild wall thickening of the descending and sigmoid colon. This may be related to under distention however colitis or inflammatory or infectious etiology could produce a similar appearance. 4. Diverticulosis without evidence of acute diverticulitis. 5. Large hiatal hernia. 6. Obstructive lung disease. This exam was performed according to our departmental dose-optimization program, which includes automated exposure control, adjustment of the mA and/or kV according to patient size and/or use of iterative reconstruction technique. Qualifiers - * PATIENT BEING DISCHARGED WITH ANY OF THE FOLLOWING DIAGNOSIS: No
[2017-11-16] MEDS: ENOXAPARIN SODIUM INJ 40 MG/0.4 ML DISP.SYRIN SUBCUT SCH (11:05)
[2017-11-16] MEDS: ONDANSETRON HCL INJ/PF 4 MG/2 ML SDV IV PRN (11:08)
[2017-11-16] MEDS ORDERED: LORAZEPAM INJ 2 MG/1 ML VIAL IV SCH (17:00)
[2017-11-16 17:52] VITALS: BP 153/91
== END 2017-11-16 18:20 | disposition home health service (06) | DRG 641 ==
LOC: ER 00:11 → EH 04:03 → 3W 06:22
PROVIDERS: ADMIT Family Medicine; ATTEND Family Medicine
DX: E87.1 Hypo-osmolality and hyponatremia (principal); N30.00 Acute cystitis without hematuria; F10.231 Alcohol dependence with withdrawal delirium; M48.54XA Collapsed vertebra, not elsewhere classified, thoracic region, initial encounter for fracture; M48.56XA Collapsed vertebra, not elsewhere classified, lumbar region, initial encounter for fracture; M51.36 Other intervertebral disc degeneration, lumbar region; M51.34 Other intervertebral disc degeneration, thoracic region; I10 Essential (primary) hypertension; Z79.891 Long term (current) use of opiate analgesic; M54.5 Low back pain; M81.0 Age-related osteoporosis without current pathological fracture; J44.9 Chronic obstructive pulmonary disease, unspecified; M85.80 Other specified disorders of bone density and structure, unspecified site; F17.200 Nicotine dependence, unspecified, uncomplicated; Z98.51 Tubal ligation status; Z88.6 Allergy status to analgesic agent; E78.5 Hyperlipidemia, unspecified; K21.9 Gastro-esophageal reflux disease without esophagitis; M13.88 Other specified arthritis, other site; Z79.52 Long term (current) use of systemic steroids; Z79.899 Other long term (current) drug therapy; F41.9 Anxiety disorder, unspecified; G89.29 Other chronic pain; R33.9 Retention of urine, unspecified; J45.909 Unspecified asthma, uncomplicated
CPT/HCPCS: 36415; 51701; 71045; 71275; 74174; 80048; 80053; 80307; 81001; 82550; 83880; 84484; 85025; 85610; 85730; 87040; 87086; 87088; 87186; 93005; 93010; 94640; 96374; 96375; 96376; 99285; G8978-GP; G8979-GP; J1170; J1650; J1885; J1956; J2060; J2405; J3480; J7030; J7620

== ENCOUNTER → 2017-12-20 | Outpatient (CLI) | payer MEDICARE, MEDICAID ==
--- NOTE | 2017-12-20 14:17 | WOMENS IMAGING REPORT ---
EXAM DESCRIPTION: BONE DENSITY HIP/SPINE COMPLETED DATE/TIME: 12/20/2017 1:49 pm REASON FOR STUDY: M48.50XA-M48.50XA COLLAPSED VERTEBRA, NOT ELSEWHERE CLASSIFIED, SITE UNSPEC M48.50 XA COLLAPSED VERTEBRA, NEC, SITE UNSP, INIT COMPARISON: 2012 TECHNIQUE: Dual-Energy X-ray Absorptiometry (DEXA) of the AP Spine and Hip. LIMITATIONS: None. FINDINGS: LUMBAR SPINE: The bone mineral density (BMD) measured from L1-L4 in the AP projection correlates with a T-score of -0.3, previously -1.3, which is normal as defined by the World Health Organization. HIP: The bone mineral density (BMD) measured in the left hip correlates with a T-score of -2.5, previously -2.1, which is osteoporosis as defined by the World Health Organization. IMPRESSION: 1. LUMBAR SPINE: NORMAL. 2. HIP: OSTEOPOROSIS. COMMENT: The World Health Organization defines low BMD as follows: T-score: Normal: Greater than -1.0 Osteopenia: Between -1.0 and -2.5 Osteoporosis: Less than -2.5 without fractures Established osteoporosis: Less than -2.5 with fractures In general, you may wish to consider: Diagnosis Treatment Follow-up DEXA Normal BMD Prevention 2-3 years Osteopenia Prevention/Therapy 1-2 years Osteoporosis Therapy Yearly TECHNICAL DOCUMENTATION: JOB ID: [id number] [employer]- All Rights Reserved Reading location - IP/workstation name: [email or web address]
--- NOTE | 2017-12-20 14:37 | RADIOLOGY REPORT (SQ) ---
EXAM DESCRIPTION: MRI THORACIC SPINE WITHOUT COMPLETED DATE/TIME: 12/20/2017 12:03 pm REASON FOR STUDY: COLLAPSED VERTEBRA, NEC, SITE UNSP, INIT (M48.50XA) M48.50XA COLLAPSED VERTEBRA, NEC, SITE UNSP, INIT COMPARISON: 07/10/2008 TECHNIQUE: Sagittal and Axial imaging includes T1, T2, STIR and gradient echo sequences. LIMITATIONS: Motion. FINDINGS: Compression fracture T7 with heterogeneous increased T2 signal along the inferior posterio r margin. Vertebra plana with mild retropulsion. Chronic compression fracture T12. Cord signal is normal. No evidence of acute disc herniation. No paraspinal mass. IMPRESSION: Recent compression fracture T7. TECHNICAL DOCUMENTATION: JOB ID: [id number] [employer]- All Rights Reserved Reading location - IP/workstation name: [email or web address]
== END ==
LOC: WI 10:54
PROVIDERS: ATTEND Family Medicine
DX: M48.54XA Collapsed vertebra, not elsewhere classified, thoracic region, initial encounter for fracture (principal)
CPT/HCPCS: 72146; 77080

== ENCOUNTER → 2017-12-30 | Outpatient (CLI) | payer MEDICARE, MEDICAID ==
--- NOTE | 2017-12-30 13:15 | WOMENS IMAGING REPORT ---
EXAM DESCRIPTION: BILAT SCREENING MAMMO W/CAD COMPLETED DATE/TIME: 12/30/2017 12:56 pm REASON FOR STUDY: BILATERAL SCREENING MAMMO/Z12.31 Z12.31 ENCNTR SCREEN MAMMOGRAM FOR MALIGNANT [place]A PLASM OF [place] COMPARISON: 2010- 2016 TECHNIQUE: Standard craniocaudal and mediolateral oblique views of each breast recorded using StatusPage[employer] l acquisition. LIMITATIONS: None. FINDINGS: Findings present which are benign by mammographic criteria. No suspicious masses, calcifi cations or architectural distortion. Pertinent benign findings: Stable calcifications. Read with the assistance of CAD. .[facility] - R2 Cenova Version 1.3 .[facility] - R2 Cenova Version 1.3 .[facility] - R2 Cenova Version 2.4 .[facility] R2 Cenova Version 2.4 .[facility] - R2 Flow Worker Version 9.2 Benign mammographic findings may include one or more of the following: Smooth masses, popcorn/rim/co arse calcifications, asymmetries, post-procedure changes, and lesions with long-standing stability. IMPRESSION: BENIGN MAMMOGRAPHIC FINDINGS. BIRADS 2 BREAST DENSITY: c. The breasts are heterogeneously dense, which may obscure small masses. BIRAD: 2 BENIGN FINDING(S) RECOMMENDATION: ROUTINE SCREENING COMMENT: The patient has been notified of the results by letter per SA requirements. Additional no tification policies are in place for contacting patient with suspicious or incomplete findings. Quality ID #[id number]: The [employer] recommends an annual screening mammogram for women aged 40 years or over. This facility utilizes a reminder system to ensure that all patients receive reminder letters, and/or direct phone calls for appointments. This includes reminders for routine scr eening mammograms, diagnostic mammograms, or other Breast Imaging Interventions when appropriate. Th is patient will be placed in the appropriate reminder system. The [employer] (ACR) has developed recommendations for screening MRI of the breast s in certain patient populations, to be used in conjunction with mammography. Breast MRI surveillanc e may be appropriate for women with more than 20% lifetime risk of developing breast cancer as deter mined by genetic testing, significant family history of the disease, or history of mantle radiation f or Hodgkins Disease. ACR Practice Guidelines 2008. TECHNICAL DOCUMENTATION: FINDING NUMBER: (1) ASSESSMENT: (1) JOB ID: [id number] [employer]- All Rights Reserved Reading location - IP/[facility]station [facility]: [email or web address]
== END ==
LOC: WI 09:34
PROVIDERS: ATTEND Family Medicine
DX: Z12.31 Encounter for screening mammogram for malignant neoplasm of breast (principal)
CPT/HCPCS: 77067

== ENCOUNTER → 2018-12-28 | Outpatient (CLI) | payer MEDICARE, MEDICAID ==
--- NOTE | 2018-12-28 12:09 | WOMENS IMAGING REPORT ---
EXAM DESCRIPTION: BILAT SCREENING MAMMO W/CAD COMPLETED DATE/TIME: 12/28/2018 11:09 am REASON FOR STUDY: Z12.31 ENCOUNTER FOR SCREENING MAMMOGRAM FOR MALIGNANT NEOPLASM OF BREAST Z12.31 ENCNTR SCREEN MAMMOGRAM FOR MALIGNANT NEOPLASM OF [place] COMPARISON: Multiple since 2010 EXAM PARAMETERS: Standard craniocaudal and mediolateral oblique views of each breast recorded using digital acquisition and breast tomosynthesis. Read with the assistance of CAD. .[facility] - ID.me [employer] Version 9.2 LIMITATIONS: None. FINDINGS: Findings present which are benign by mammographic criteria. No suspicious masses, calcific ations or architectural distortion. Pertinent benign findings: Benign calcifications bilaterally Benign mammographic findings may include one or more of the following: Smooth masses, popcorn/rim/coa rse calcifications, asymmetries, post-procedure changes, and lesions with long-standing stability. IMPRESSION: BENIGN MAMMOGRAPHIC FINDINGS. BIRADS 2 BREAST DENSITY: c. The breasts are heterogeneously dense, which may obscure small masses. BIRAD: ASSESSMENT: 2 BENIGN FINDING(S) RECOMMENDATION: ROUTINE SCREENING Please continue yearly bilateral screening mammography/tomosynthesis in December 2019 COMMENT: The patient has been notified of the results by letter per MQSA requirements. Additional no tification policies are in place for contacting patient with suspicious or incomplete findings. Quality ID #[id number]: The [employer] recommends an annual screening mammogram for women aged 40 years or over. This facility utilizes a reminder system to ensure that all patients receive reminder letters, and/or direct phone calls for appointments. This includes reminders for routine scr eening mammograms, diagnostic mammograms, or other Breast Imaging Interventions when appropriate. Th is patient will be placed in the appropriate reminder system. TECHNICAL DOCUMENTATION: FINDING NUMBER: (1) ASSESSMENT: (1) JOB ID: [id number] [employer]- All Rights Reserved Reading location - IP/workstation name: [email or web address]
== END ==
LOC: WI 10:38
PROVIDERS: ATTEND Family Medicine
DX: Z12.31 Encounter for screening mammogram for malignant neoplasm of breast (principal)
CPT/HCPCS: 77067

== ENCOUNTER → 2019-03-02 | Outpatient (CLI) | payer MEDICARE, MEDICAID ==
[2019-03-02 13:21] LABS: ABSOLUTE BASOPHILS # (AUTO) 0.1 10^3/uL (0.0-0.2); ABSOLUTE EOSINOPHILS # (AUTO) 0.2 10^3/uL (0.0-0.6); ABSOLUTE LYMPHOCYTES (AUTO) 2.8 10^3/uL (0.5-4.7); ABSOLUTE MONOCYTES (AUTO) 0.8 10^3/uL (0.1-1.4); ABSOLUTE NEUT (AUTO) 5.3 10^3/uL (1.7-8.2); BASOPHILS % (AUTO) 0.9 % (0-2); EOSINOPHILS % (AUTO) 1.7 % (0-6); HEMATOCRIT 36.8 % (36.0-47.0); HEMOGLOBIN 12.6 g/dL (12.0-15.5); LYMPHOCYTES % (AUTO) 30.7 % (13-45); MEAN CORPUSCULAR HEMOGLOBIN 32.4 pg (27.0-33.4); MEAN CORPUSCULAR HGB CONC 34.2 g/dL (32.0-36.0); MEAN CORPUSCULAR VOLUME 95 fl (80-97); MONOCYTES % (AUTO) 8.5 % (3-13); PLATELET COUNT 273 10^3/uL (150-450); RED BLOOD COUNT 3.89 10^6/uL (3.72-5.28); RED CELL DISTRIBUTION WIDTH 14.4 % (11.5-14.0); SEGMENTED NEUTROPHILS % (AUTO) 58.2 % (42-78); TOTAL CELLS COUNTED % (AUTO) 100 %; WHITE BLOOD COUNT 9.1 10^3/uL (4.0-10.5)
[2019-03-02 13:23] LABS: INTERNATIONAL RATION (INR) 0.87; PROTHROMBIN TIME 11.8 SEC (11.4-15.4)
[2019-03-02 13:49] LABS: ANION GAP 14 (5-19); BLOOD UREA NITROGEN 9 mg/dL (7-20); CARBON DIOXIDE 21 mmol/L (22-30); CHLORIDE 99 mmol/L (98-107); GLUCOSE 97 mg/dL (75-110); POTASSIUM 4.6 mmol/L (3.6-5.0)
[2019-03-03 08:37] LABS: HEPATITS B SURFACE ANTIGEN Negative (Negative)
[2019-03-03 10:32] LABS: HEPATITIS C VIRUS ANTIBODY >11.0 s/co ratio (0.0-0.9)
== END ==
LOC: OD 12:00
PROVIDERS: ATTEND Internal Medicine Gastroenterology
DX: B18.2 Chronic viral hepatitis C (principal)
CPT/HCPCS: 36415; 80048; 80074; 82172; 82247; 82977; 83010; 83883; 84460; 85025; 85610; 86701; 87522

== ENCOUNTER → 2019-05-19 | Outpatient (CLI) | payer MEDICARE, MEDICAID ==
[2019-05-19 11:34] LABS: ABSOLUTE EOSINOPHILS # (AUTO) 0.2 10^3/uL (0.0-0.6); ABSOLUTE LYMPHOCYTES (AUTO) 3.1 10^3/uL (0.5-4.7); ABSOLUTE MONOCYTES (AUTO) 0.5 10^3/uL (0.1-1.4); ABSOLUTE NEUT (AUTO) 4.1 10^3/uL (1.7-8.2); BASOPHILS % (AUTO) 0.6 % (0-2); EOSINOPHILS % (AUTO) 2.1 % (0-6); HEMATOCRIT 38.1 % (36.0-47.0); HEMOGLOBIN 13.3 g/dL (12.0-15.5); LYMPHOCYTES % (AUTO) 39.3 % (13-45); MEAN CORPUSCULAR HEMOGLOBIN 32.7 pg (27.0-33.4); MEAN CORPUSCULAR HGB CONC 34.9 g/dL (32.0-36.0); MEAN CORPUSCULAR VOLUME 94 fl (80-97); MONOCYTES % (AUTO) 6.7 % (3-13); PLATELET COUNT 317 10^3/uL (150-450); RED BLOOD COUNT 4.07 10^6/uL (3.72-5.28); RED CELL DISTRIBUTION WIDTH 14.3 % (11.5-14.0); SEGMENTED NEUTROPHILS % (AUTO) 51.3 % (42-78); TOTAL CELLS COUNTED % (AUTO) 100 %
[2019-05-19 12:00] LABS: ANION GAP 12 (5-19); BLOOD UREA NITROGEN 17 mg/dL (7-20); CALCIUM 9.7 mg/dL (8.4-10.2); CARBON DIOXIDE 23 mmol/L (22-30); CHLORIDE 103 mmol/L (98-107); GLUCOSE 131 mg/dL (75-110); POTASSIUM 4.9 mmol/L (3.6-5.0)
== END ==
LOC: OD 10:38
PROVIDERS: ATTEND Internal Medicine Gastroenterology
DX: B18.2 Chronic viral hepatitis C (principal)
CPT/HCPCS: 36415; 80048; 85025; 87522

== ENCOUNTER → 2019-05-29 | Outpatient (CLI) | payer MEDICARE, MEDICAID ==
--- NOTE | 2019-05-29 14:39 | RADIOLOGY REPORT (SQ) ---
EXAM DESCRIPTION: FOOT RIGHT COMPLETE; ANKLE RIGHT COMPLETE COMPLETED DATE/TIME: 05/29/2019 1:25 pm; 05/29/2019 1:26 pm REASON FOR STUDY: INJURY OF RT FOOT AND ANKLE COMPARISON: None. FINDINGS: Three views right ankle: Mildly osteopenic. Mild ankle joint effusion. NONDISPLACED FRA CTURE through the lateral malleolus. Generalized soft tissue swelling. Three views right foot: Osteopenic. COMMINUTED FRACTURE through the proximal 5th metatarsal shaft a nd base. Slight dorsal and medial displacement. TECHNICAL DOCUMENTATION: JOB ID: [id number] Reading location - IP/workstation name: [email or web address]
--- NOTE | 2019-05-29 14:39 | RADIOLOGY REPORT (SQ) ---
EXAM DESCRIPTION: FOOT RIGHT COMPLETE; ANKLE RIGHT COMPLETE COMPLETED DATE/TIME: 05/29/2019 1:25 pm; 05/29/2019 1:26 pm REASON FOR STUDY: INJURY OF RT FOOT AND ANKLE COMPARISON: None. FINDINGS: Three views right ankle: Mildly osteopenic. Mild ankle joint effusion. NONDISPLACED FRA CTURE through the lateral malleolus. Generalized soft tissue swelling. Three views right foot: Osteopenic. COMMINUTED FRACTURE through the proximal 5th metatarsal shaft a nd base. Slight dorsal and medial displacement. TECHNICAL DOCUMENTATION: JOB ID: [id number] Reading location - IP/workstation name: [email or web address]
== END ==
LOC: RAD 13:08
PROVIDERS: ATTEND Nurse Practitioner Acute Care
DX: S99.911A Unspecified injury of right ankle, initial encounter (principal); S92.354A Nondisplaced fracture of fifth metatarsal bone, right foot, initial encounter for closed fracture; X58.XXXA Exposure to other specified factors, initial encounter

== ENCOUNTER → 2019-06-23 | Outpatient (CLI) | payer MEDICARE, MEDICAID ==
[2019-06-23 16:22] LABS: ABSOLUTE BASOPHILS # (AUTO) 0.1 10^3/uL (0.0-0.2); ABSOLUTE EOSINOPHILS # (AUTO) 0.2 10^3/uL (0.0-0.6); ABSOLUTE LYMPHOCYTES (AUTO) 3.5 10^3/uL (0.5-4.7); ABSOLUTE MONOCYTES (AUTO) 0.6 10^3/uL (0.1-1.4); ABSOLUTE NEUT (AUTO) 3.2 10^3/uL (1.7-8.2); BASOPHILS % (AUTO) 1.4 % (0-2); EOSINOPHILS % (AUTO) 2.5 % (0-6); HEMATOCRIT 34.8 % (36.0-47.0); HEMOGLOBIN 12.1 g/dL (12.0-15.5); LYMPHOCYTES % (AUTO) 46.4 % (13-45); MEAN CORPUSCULAR HEMOGLOBIN 32.2 pg (27.0-33.4); MEAN CORPUSCULAR HGB CONC 34.8 g/dL (32.0-36.0); MEAN CORPUSCULAR VOLUME 93 fl (80-97); MONOCYTES % (AUTO) 7.7 % (3-13); PLATELET COUNT 284 10^3/uL (150-450); RED BLOOD COUNT 3.76 10^6/uL (3.72-5.28); RED CELL DISTRIBUTION WIDTH 13.7 % (11.5-14.0); TOTAL CELLS COUNTED % (AUTO) 100 %; WHITE BLOOD COUNT 7.6 10^3/uL (4.0-10.5)
[2019-06-23 16:43] LABS: ALBUMIN 4.4 g/dL (3.5-5.0); ALKALINE PHOSPHATASE 60 U/L (38-126); ANION GAP 9 (5-19); ASPARTATE AMINO TRANSFERASE 28 U/L (14-36); BILIRUBIN,DIRECT 0.3 mg/dL (0.0-0.4); BILIRUBIN,TOTAL 0.3 mg/dL (0.2-1.3); BLOOD UREA NITROGEN 10 mg/dL (7-20); CALCIUM 9.6 mg/dL (8.4-10.2); CARBON DIOXIDE 23 mmol/L (22-30); CHLORIDE 102 mmol/L (98-107); GLUCOSE 109 mg/dL (75-110); POTASSIUM 4.6 mmol/L (3.6-5.0); TOTAL PROTEIN 7.9 g/dL (6.3-8.2)
== END ==
LOC: OD 15:47
PROVIDERS: ATTEND Internal Medicine Gastroenterology
DX: B18.2 Chronic viral hepatitis C (principal)
CPT/HCPCS: 36415; 80053; 85025; 87522

== ENCOUNTER → 2020-01-02 | Outpatient (CLI) | payer MEDICARE, MEDICAID ==
--- NOTE | 2020-01-02 12:08 | WOMENS IMAGING REPORT ---
EXAM DESCRIPTION: 3D SCREENING MAMMO BILAT IMAGES COMPLETED DATE/TIME: 01/02/2020 11:18 am REASON FOR STUDY: Z12.31 ENCOUNTER FOR SCREENING MAMMOGRAM FOR MALIGNANT NEOPLASM OF BREAST Z12.31 ENCNTR SCREEN MAMMOGRAM FOR MALIGNANT NEOPLASM OF [place] COMPARISON: Priors dating back to 2013. EXAM PARAMETERS: Views: Standard craniocaudal and mediolateral oblique views of each breast recorded using digital acquisition and breast tomosynthesis. Read with the assistance of CAD. .[facility] - R2 [employer] Version 9.2 LIMITATIONS: None. FINDINGS: No suspicious masses, suspicious calcifications or architectural distortion. No areas of c oncern. IMPRESSION: NEGATIVE MAMMOGRAM. BIRADS 1. BREAST DENSITY: c. The breasts are heterogeneously dense, which may obscure small masses. BIRAD: ASSESSMENT: 1 NEGATIVE RECOMMENDATION: ROUTINE SCREENING COMMENT: The patient has been notified of the results by letter per MQSA requirements. Additional no tification policies are in place for contacting patient with suspicious or incomplete findings. Quality ID #225: The [employer] recommends an annual screening mammogram for women aged 40 years or over. This facility utilizes a reminder system to ensure that all patients receive reminder letters, and/or direct phone calls for appointments. This includes reminders for routine scr eening mammograms, diagnostic mammograms, or other Breast Imaging Interventions when appropriate. Th is patient will be placed in the appropriate reminder system. TECHNICAL DOCUMENTATION: FINDING NUMBER: (1) ASSESSMENT: (1) JOB ID: [id number] [employer]- All Rights Reserved Reading location - IP/workstation name: [email or web address]
== END ==
LOC: WI 10:38
PROVIDERS: ATTEND Family Medicine
DX: Z12.31 Encounter for screening mammogram for malignant neoplasm of breast (principal)
CPT/HCPCS: 77063; 77067